=== PATIENT | female | born 1975 | race Caucasian/White ===

== ENCOUNTER 2018-07-21 17:26 | Emergency (ER) | payer OTHER ==
[2018-07-21] MEDS ORDERED: KETOROLAC TROMETHAMINE 60 MG/2 ML VIAL IM ONE (18:39)
--- NOTE | 2018-07-21 18:39 | PDOC ---
Rapid Medical Evaluation Chief Complaint: Chronic pain Time Seen by Provider: 07/21/18 18:34 Medical Evaluation: Allergies Allergy/AdvReac Type Severity Reaction Status Date / Time No Known Allergies Allergy Verified 07/21/18 18:32 07/21/18 18:34 I have performed a brief in-person evaluation of this patient. The patient presents with a chief complaint of:h/o chronic back being managed with physical therapy for 6 months now present with complains of worsening lower back radiating down right thigh with tingling sensation . Patient did not take anything for the pain. Patient report she got injured on the job doing heavy lifting 6 months ago. Pertinent physical exam findings: moderate TTP over lower lumber area. I have ordered the following: Toradol 60mg IM. x-ray of lumbosacral The patient will proceed to the ED for further evaluation. Discharge Disposition - Diagnosis Lumbago - Discharge Dispostion Condition at time of disposition: Stable - Referrals - Patient Instructions - Post Discharge Activity
[2018-07-21 18:40] VITALS: BP 148/58; PULSE 95; TEMP 98; BMI 27.4
--- NOTE | 2018-07-21 20:28 | PDOC ---
History of Present Illness - General Chief Complaint: Chronic pain Stated Complaint: ABD PAIN Time Seen by Provider: 07/21/18 18:34 - History of Present Illness Initial Comments: 07/21/18 20:28 43-year-old female presents for evaluation of lower back pain with bilateral posterior lateral leg radicular symptoms without loss of bowel bladder function saddle paresthesia or systemic symptoms. Past History - Past Medical History Allergies/Adverse Reactions: Allergies Allergy/AdvReac Type Severity Reaction Status Date / Time No Known Allergies Allergy Verified 07/21/18 18:32 Home Medications: Ambulatory Orders Cetirizine HCl [Zyrtec -] 10 mg PO DAILY 07/21/18 Cyclobenzaprine HCl [Flexeril 10 mg] 10 mg PO HS PRN #10 tablet 07/21/18 Fluoxetine HCl [Prozac -] 20 mg PO DAILY 07/21/18 Methylprednisolone [Medrol Dose Donell] 4 mg PO ASDIR #21 tablet 07/21/18 Pantoprazole Sodium [Protonix -] 40 mg PO DAILY 07/21/18 traZODone HCL [Trazodone HCl] 100 mg PO HS 07/21/18 COPD: No Other medical history: back injury ? disc - Suicide/Smoking/Psychosocial Hx Smoking History: Never smoked Review of Systems - Review of Systems : No: Incontinence Musculoskeletal: Yes: Back Pain Neurological: Yes: Weakness *Physical Exam - Vital Signs Last Vital Signs Temp Pulse Resp BP Pulse Ox 98 F 95 H 22 H 148/58 L 100 07/21/18 18:34 07/21/18 18:34 07/21/18 18:34 07/21/18 18:34 07/21/18 18:34 - Physical Exam Comments: 07/21/18 20:27 Lumbar spine skin color and temperature are normal range of motion is limited. There is no midline tenderness. Moderate right and left paralumbar musculature spasm and tenderness. 5 out of 5 strength in bilateral lower extremities without gross sensorimotor deficits. She is neurovascularly intact. Positive straight leg test bilaterally Medical Decision Making - Medical Decision Making 07/21/18 20:27 43-year-old female with lumbar radiculopathy for 1 month holding out on evaluation because of insurance issues I'll treat her in the emergency room with Toradol Medrol Dosepak at home and orthopedic spine surgery follow-up. Flexeril was also add *DC/Admit/Observation/Transfer Diagnosis at time of Disposition: Lumbago, Lumbar radiculopathy - Discharge Dispostion Disposition: HOME Condition at time of disposition: Stable Decision to Admit order: No - Prescriptions Prescriptions: Cyclobenzaprine HCl [Flexeril 10 mg] 10 mg PO HS PRN #10 tablet PRN Reason: Muscle Spasms Methylprednisolone [Medrol Dose Donell] 4 mg PO ASDIR #21 tablet - Referrals Referrals: Adrian Cobian MD [Staff Physician] - - Patient Instructions Printed Discharge Instructions: Lumbar Radiculopathy, DI for Lumbar Radiculopathy Additional Instructions: Please start the muscle relaxer this evening. One tablet before bedtime. And start the steroid pack tomorrow morning. Return to the emergency room for worsening symptoms and follow-up with orthopedic spine surgery without fail in 1 -2 days for further evaluation and treatment options. - Post Discharge Activity
[2018-07-21] MEDS ORDERED: KETOROLAC TROMETHAMINE 60 MG/2 ML VIAL ONE (20:38)
== END 2018-07-21 20:49 | disposition home or self-care (01) ==
LOC: JERFT 17:26 → JER 17:26 → JERFT 20:49
PROC: 3E0233Z Introduction of Anti-inflammatory into Muscle, Percutaneous Approach (ICD-10-PCS; principal; 2018-07-21)
DX: M54.16 Radiculopathy, lumbar region (principal)
CPT/HCPCS: 96372; 99281-25

== ENCOUNTER 2018-10-30 09:00 | Inpatient (IN) | payer OTHER ==
[2018-11-12 10:35] VITALS: BMI 27.3
[2018-11-13 06:46] LABS: EPI CELLS 4.2 /HPF (0-5/HPF); HCG,QUALITATIVE URINE Negative; HYALINE CASTS 5 /lpf (0-8); PH,URINE 6.5 (5.0-8.0); URINE APPEARANCE CLEAR; URINE BACTERIA 8.6 /hpf (NEGATIVE); URINE BILIRUBIN NEGATIVE (NEGATIVE); URINE COLOR YELLOW; URINE GLUCOSE (UA) NEGATIVE (NEGATIVE); URINE KETONE NEGATIVE (NEGATIVE); URINE LEUK ESTERASE NEGATIVE (NEGATIVE); URINE NITRITE NEGATIVE (NEGATIVE); URINE PROTEIN NEGATIVE (NEGATIVE); URINE RBC 3 /hpf (0-4); URINE UROBILINOGEN 0.2 mg/dL (0.2-1.0); URINE WBC 1 /hpf (0-5)
[2018-11-13] MEDS ORDERED: LIDOCAINE 1%-EPI 1:100,000 30 ML MDV IJ ONE (07:50)
[2018-11-13] MEDS ORDERED: VANCOMYCIN 1,000 MG VIAL (RESTRICTED TO ID ONLY) ONE ×2 (07:50→08:36)
[2018-11-13] MEDS ORDERED: GENTAMICIN SO4 80 MG/2 ML VIAL ONE (07:50)
[2018-11-13] MEDS ORDERED: PROPOFOL 20 ML ONE ×2 (08:00)
[2018-11-13] MEDS ORDERED: MIDAZOLAM HCL 2 MG/2 ML SINGLE DOSE VIAL ONE ×2 (08:00)
[2018-11-13] MEDS ORDERED: ROCURONIUM BROMIDE 50 MG/5 ML SYRINGE ONE (08:02)
[2018-11-13] MEDS ORDERED: MORPHINE 5 MG/10 ML AMP - FOR COMPOUNDING USE ONLY ONE (08:03)
[2018-11-13] MEDS ORDERED: THROMBIN (BOVINE) 5,000 UNIT VIAL TP ONE ×2 (08:04→10:00)
[2018-11-13] MEDS ORDERED: LIDOCAINE HCL/PF 2% SDV 5ML VIAL ONE (08:27)
[2018-11-13] MEDS ORDERED: ceFAZolin SODIUM 1 GM VIAL ONE ×2 (08:36→17:54)
[2018-11-13] MEDS ORDERED: SODIUM CHLORIDE 0.9% P/F 10 ML VIAL IJ ONE (08:36)
[2018-11-13] MEDS ORDERED: DEXAMETHASONE SOD PHOSPHATE 4 MG/1 ML VIAL ONE (08:39)
[2018-11-13] MEDS ORDERED: ONDANSETRON 4 MG/2 ML VIAL ONE (08:39)
[2018-11-13] MEDS ORDERED: LIDOCAINE 1%/EPI 1:100000 (20 ML MULTI DOSE VIAL) IJ ONE ×2 (09:00)
[2018-11-13] MEDS ORDERED: BUPIVACAINE HCL/PF 0.25% (2.5MG/ML) 10 ML VIAL ONE (09:32)
[2018-11-13] MEDS ORDERED: ceFAZolin SODIUM 1 GM VIAL IVPB ONE (09:37)
[2018-11-13] MEDS ORDERED: BUPIVACAINE LIPOSOME/PF (EXPAREL) 266 MG/20 ML VIAL ONE (09:40)
[2018-11-13] MEDS ORDERED: VANCOMYCIN 1,000 MG VIAL (RESTRICTED TO ID ONLY) IVPB ONE (09:40)
[2018-11-13] MEDS ORDERED: GELATIN, ABSORBABLE 12-7MM EACH SPONGE TP ONE (10:00)
[2018-11-13] MEDS ORDERED: DESFLURANE GAS 240 ML BOTTLE IH ONE (10:07)
[2018-11-13] MEDS ORDERED: BUPIVACAINE LIPOSOME/PF (EXPAREL) 266 MG/20 ML VIAL NR ONE ×2 (10:24→11:15)
[2018-11-13] MEDS ORDERED: BUPIVACAINE HCL/PF 0.25% (2.5MG/ML) 10 ML VIAL IJ ONE ×2 (10:24→11:15)
[2018-11-13] MEDS ORDERED: GLYCOPYRROLATE 0.2 MG/1 ML VIAL ONE (11:13)
[2018-11-13] MEDS ORDERED: NEOSTIGMINE METHYLSULFATE 0.5 MG/1 ML - 10 ML MDV ONE (11:13)
[2018-11-13] MEDS ORDERED: DEXAMETHASONE SOD PHOSPHATE 4 MG/1 ML VIAL IVPUSH PRN (12:01)
[2018-11-13] MEDS ORDERED: PROMETHAZINE HCL 25 MG/1 ML VIAL IVPUSH PRN (12:01)
[2018-11-13] MEDS ORDERED: ONDANSETRON 4 MG/2 ML VIAL IVPUSH PRN ×3 (12:01→12:21)
[2018-11-13] MEDS ORDERED: PROMETHAZINE HCL 25 MG/1 ML VIAL IVPB PRN (12:01)
[2018-11-13] MEDS ORDERED: HYDROmorphone *PCA* 10MG/50ML DISP.SYRIN PCA SCH (12:15)
[2018-11-13] MEDS ORDERED: diphenhydrAMINE HCL 25 MG CAPSULE (FP) PO PRN (12:21)
[2018-11-13] MEDS ORDERED: LACTATED RINGERS SOLUTION 1,000 ML/1,000 ML INFUS.BAG IV SCH (12:30)
[2018-11-13] MEDS ORDERED: HYDROmorphone *PCA* 10MG/50ML DISP.SYRIN ONE (12:36)
--- NOTE | 2018-11-13 12:38 | CON.GU ---
Consult - History of Present Illness History of Present Illness: 43 yo female admitted for laminectomy. Nixon catheter inserted in OR with clear urine. Then developed pink urine when she was positioned. No prior history aside from uti in the past - Past Medical History ...LMP: 10/24/18 - Alcohol/Substance Use Hx Alcohol Use: No - Smoking History Smoking history: Never smoked Have you smoked in the past 12 months: No Home Medications - Allergies Allergies/Adverse Reactions: Allergies Allergy/AdvReac Type Severity Reaction Status Date / Time No Known Allergies Allergy Verified 11/13/18 07:01 - Home Medications Home Medications: Ambulatory Orders traZODone HCL [Trazodone HCl] 100 mg PO PRN PRN 07/21/18 Gabapentin [Neurontin] 300 mg PO BID 11/04/18 Oxycodone HCl/Acetaminophen [Oxycodone-Acetaminophen 5-325] 1 each PO PRN PRN Physical Exam- Vital Signs: Vital Signs Temperature 98.6 F 11/13/18 07:02 Pulse Rate 86 11/13/18 07:02 Respiratory Rate 16 11/13/18 07:02 Blood Pressure 113/70 11/13/18 07:02 O2 Sat by Pulse Oximetry (%) 100 11/13/18 07:02 Problem List - Problems (1) Gross hematuria Assessment/Plan: may remove nixon when urine clear outpt followup for cystoscopy renal sonogram tomorrow Code(s): R31.0 - GROSS HEMATURIA
[2018-11-13] MEDS ORDERED: traZODone HCL 100 MG TABLET (FP) PO PRN (12:46)
[2018-11-13 13:05] LABS: EPI CELLS 0.7 /HPF (0-5/HPF); HYALINE CASTS 0 /lpf (0-8); PH,URINE 7.5 (5.0-8.0); URINE APPEARANCE CLEAR; URINE BACTERIA 0.2 /hpf (NEGATIVE); URINE BILIRUBIN NEGATIVE (NEGATIVE); URINE COLOR ORANGE; URINE GLUCOSE (UA) NEGATIVE (NEGATIVE); URINE KETONE NEGATIVE (NEGATIVE); URINE LEUK ESTERASE NEGATIVE (NEGATIVE); URINE NITRITE NEGATIVE (NEGATIVE); URINE PROTEIN 1+ (NEGATIVE); URINE RBC 4 /hpf (0-4); URINE UROBILINOGEN 0.2 mg/dL (0.2-1.0); URINE WBC 0 /hpf (0-5)
[2018-11-13] MEDS ORDERED: morphine SULFATE/PF 0.5 MG/ML (2cc Syringe - QUVA) EP ONE (13:15)
--- NOTE | 2018-11-13 13:15 | OP ---
Operative Note - Note: Operative Date: 11/13/18 Pre-Operative Diagnosis: Lumbar instability and Left L34 foraminal disc herniation Operation: L3-4 laminectomies with left rranspedicular approach for interbody cage and arthrodesis with L34 posterior fusion Post-Operative Diagnosis: Same as Pre-op Surgeon: Pawel Sterling Head Irrigator: Muriel Joshi Anesthesiologist/BI CONSULTANT: Justin Boateng Anesthesia: General, Spinal, Local Estimated Blood Loss (mls): 100 Drains & Tubes with Location: j/p right paravetebral lumbar spine Drains, Volume Out (mls): 600 (nixon) Fluid Volume Replaced (mls): 1,300 Operative Report Dictated: Yes
--- NOTE | 2018-11-13 14:46 | CONSULT ---
Consult Consult Specialty:: medicine - History of Present Illness Chief Complaint: post op laminectomy History of Present Illness: 43 yr old female came in for laminectomy seen in pacu has nixon cath inserted- hematuria seen by urology L3-4 laminectomies with left transpedicular approach for interbody cage and arthrodesis with L34 posterior fusion - Past Medical History ...LMP: 10/24/18 - Alcohol/Substance Use Hx Alcohol Use: No - Smoking History Smoking history: Never smoked Have you smoked in the past 12 months: No Home Medications - Allergies Allergies/Adverse Reactions: Allergies Allergy/AdvReac Type Severity Reaction Status Date / Time No Known Allergies Allergy Verified 11/13/18 07:01 - Home Medications Home Medications: Ambulatory Orders traZODone HCL [Trazodone HCl] 100 mg PO PRN PRN 07/21/18 Gabapentin [Neurontin] 300 mg PO BID 11/04/18 Oxycodone HCl/Acetaminophen [Oxycodone-Acetaminophen 5-325] 1 each PO PRN PRN Review of Systems - Review of Systems Musculoskeletal: reports: Back Pain Physical Exam Vital Signs: Vital Signs Temperature 98.6 F 11/13/18 07:02 Pulse Rate 86 11/13/18 07:02 Respiratory Rate 16 11/13/18 07:02 Blood Pressure 113/70 11/13/18 07:02 O2 Sat by Pulse Oximetry (%) 100 11/13/18 07:02 Constitutional: Yes: Calm Cardiovascular: Yes: Regular Rate and Rhythm, S1, S2 Respiratory: Yes: CTA Bilaterally Gastrointestinal: Yes: Normal Bowel Sounds, Soft Renal/: Yes: Nixon Present (no yellow urine in nixon cath tubing), Hematuria Musculoskeletal: Yes: Other (drain dark red drainage) Problem List - Problems (1) Gross hematuria Assessment/Plan: maintain nixon cath till urine is yellow Follow up [facility] Code(s): R31.0 - GROSS HEMATURIA (2) Back pain Assessment/Plan: s/p laminectomy pain control dilaudid technical aid neurontin morphine dvt ppx bowel regimen Code(s): M54.9 - DORSALGIA, UNSPECIFIED Qualifiers: Back pain location: low back pain Chronicity: chronic Back pain laterality: midline Sciatica presence: with sciatica Sciatica laterality: bilateral sciatica Qualified Code(s): M54.41 - Lumbago with sciatica, right side; M54.42 - Lumbago with sciatica, left side; G89.29 - Other chronic pain
[2018-11-13 15:17] LABS: YEAST NONE SEEN (NEGATIVE)
[2018-11-13] MEDS: LACTATED RINGERS SOLUTION 1,000 ML IV SCH (15:41)
[2018-11-13] MEDS: DOCUSATE SODIUM 100 MG CAPSULE (FP) PO SCH ×2 (15:42→21:55)
[2018-11-13] MEDS ORDERED: DEXTROSE 5%-WATER - 50 ML IVPB ONE (17:54)
[2018-11-13] MEDS: HEPARIN NA (PORCINE) 5,000 UNITS/ML 1ML VIAL SQ SCH (17:55)
[2018-11-13] MEDS: CEFAZOLIN 1 GM in DEXTROSE 5%-WATER - 50 ML IVPB SCH (17:55)
[2018-11-14] MEDS ORDERED: DEXTROSE 5%-WATER - 50 ML IVPB ONE ×3 (00:27→19:01)
[2018-11-14] MEDS ORDERED: ceFAZolin SODIUM 1 GM VIAL ONE ×3 (00:27→19:01)
[2018-11-14] MEDS: CEFAZOLIN 1 GM in DEXTROSE 5%-WATER - 50 ML IVPB SCH ×3 (00:57→19:04)
[2018-11-14] MEDS: HEPARIN NA (PORCINE) 5,000 UNITS/ML 1ML VIAL SQ SCH ×3 (01:30→17:43)
[2018-11-14] MEDS: DOCUSATE SODIUM 100 MG CAPSULE (FP) PO SCH ×3 (05:31→22:01)
[2018-11-14 08:06] LABS: BLOOD UREA NITROGEN 9.4 mg/dL (7-18); CALCIUM 8.5 mg/dL (8.5-10.1); CREATININE 0.8 mg/dL (0.55-1.3); POTASSIUM 3.7 mmol/L (3.5-5.1)
[2018-11-14 08:09] LABS: HEMATOCRIT 31.6 % (32.4-45.2); HEMOGLOBIN 10.6 GM/dL (10.7-15.3); MCH 31.8 pg (25.7-33.7); MCHC 33.5 g/dl (32.0-36.0); MEAN CELL VOLUME 94.8 fl (80-96); MEAN PLT VOLUME 9.6 fl (7.5-11.1); PLATELET COUNT 228 K/MM3 (134-434); RBC 3.34 M/mm3 (3.60-5.2); RDW 13.1 % (11.6-15.6)
--- NOTE | 2018-11-14 08:49 | PN ---
Progress Note (short form) - Note Progress Note: 43yo F s/p L3-4 PLIF POD 1, pt seen and examined at bedside. Pt states that her pain is well controlled, but is scared to get out of bed. Pt denies fever, chills, n/v. No weakness or numbness in LE. Last Vital Signs Temp Pulse Resp BP Pulse Ox 98.8 F 91 H 20 116/58 L 99 11/13/18 20:00 11/13/18 20:00 11/13/18 20:00 11/13/18 20:00 11/13/18 16:40 CBC, BMP 11/14/18 05:30 PE: Gen; A&O x 3 Resp: breathing comfortably Back: incision is clean with no erythema or discharge. Drain serosanguinous drainage Output: 40ml Ext: no weakness or numbness. Problem List - Problems (1) Lumbar radiculopathy Assessment/Plan: Plan -will DC nixon as urine is now clear. -emphasize OOB/ambulate with PT -pain control -dvt ppx Case discussed with Dr. Sterling, who agrees with plan Code(s): M54.16 - RADICULOPATHY, LUMBAR REGION
[2018-11-14] MEDS ORDERED: traZODone HCL 50 MG TABLET (FP) ONE ×2 (10:03→21:02)
[2018-11-14] MEDS: FOLIC ACID 1 MG TABLET (FP) PO SCH (10:05)
[2018-11-14] MEDS: FERROUS SO4 325 MG TABLET (FP) PO SCH (10:05)
[2018-11-14] MEDS: traZODone HCL 100 MG TABLET (FP) PO SCH ×2 (10:05→22:01)
[2018-11-14] MEDS: GABAPENTIN 300 MG CAPSULE (FP) PO SCH ×2 (10:05→22:00)
[2018-11-14] MEDS ORDERED: oxyCODONE HCL 5 MG TABLET PO PRN (10:48)
--- NOTE | 2018-11-14 10:50 | PN ---
Progress Note, Physician Chief Complaint: awake alert denies chest pain or sob hussain horan - Current Medication List Current Medications: Active Medications Dexamethasone Sodium Phosphate (Decadron Injection -) 4 mg IVPUSH ONCE PRN PRN Reason: NAUSEA AND/OR VOMITING Diphenhydramine HCl (Benadryl Injection -) 12.5 mg IVPUSH ONCE PRN PRN Reason: FOR ITCHING Diphenhydramine HCl (Benadryl -) 25 mg PO Q6H PRN PRN Reason: FOR ITCHING Docusate Sodium (Colace -) 100 mg PO TID [facility] Last Admin: 11/14/18 05:31 Dose: 100 mg Fentanyl (Sublimaze Injection -) 50 mcg IVPUSH [id number] PRN PRN Reason: PAIN-PACU ORDER X 4 DOSES ONLY Ferrous Sulfate (Feosol -) 325 mg PO DAILY [facility] Last Admin: 11/14/18 10:05 Dose: 325 mg Folic Acid (Folic Acid -) 1 mg PO DAILY [facility] Last Admin: 11/14/18 10:05 Dose: 1 mg Gabapentin (Neurontin -) 300 mg PO BID [facility] Last Admin: 11/14/18 10:05 Dose: 300 mg Heparin Sodium (Porcine) (Heparin -) 5,000 unit SQ Q8H-IV [facility] Last Admin: 11/14/18 10:04 Dose: 5,000 unit Lactated Ringer's (Lactated Ringers Solution) 1,000 mls @ 125 mls/hr IV ASDIR [facility] Last Admin: 11/13/18 15:41 Dose: Not Given Cefazolin Sodium (Ancef 1 Gm Premixed Ivpb -) 1 gm in 50 mls @ 100 mls/hr IVPB Q8H-IV [facility] Cefazolin Sodium 1 gm/ (Dextrose) 50 mls @ 100 mls/hr IVPB Q8H [facility] Stop: 11/14/18 16:59 Last Admin: 11/14/18 08:23 Dose: 100 mls/hr Ondansetron HCl (Zofran Injection) 4 mg IVPUSH Q4H PRN PRN Reason: NAUSEA AND/OR VOMITING Oxycodone HCl (Roxicodone -) 5 mg PO Q6H PRN PRN Reason: PAIN LEVEL 1-5 Stop: 11/15/18 10:47 Promethazine HCl (Phenergan Injection -) 12.5 mg IVPB Q6H PRN PRN Reason: NAUSEA AND/OR VOMITING Trazodone HCl (Desyrel -) 100 mg PO BID [facility] Last Admin: 11/14/18 10:05 Dose: 100 mg - Objective Vital Signs: Vital Signs Temperature 98.6 F 11/14/18 08:00 Pulse Rate 68 11/14/18 08:40 Respiratory Rate 18 11/14/18 08:40 Blood Pressure 100/47 L 11/14/18 08:40 O2 Sat by Pulse Oximetry (%) 96 11/14/18 08:40 Constitutional: Yes: Mild Distress Cardiovascular: Yes: WNL Respiratory: Yes: WNL Gastrointestinal: Yes: WNL Genitourinary: Yes: Other ...Motor Strength: LLE, RLE Labs: CBC, BMP 11/14/18 05:30 11/14/18 05:30 Problem List - Problems (1) Back pain Code(s): M54.9 - DORSALGIA, UNSPECIFIED Qualifiers: Back pain location: low back pain Chronicity: chronic Back pain laterality: midline Sciatica presence: with sciatica Sciatica laterality: bilateral sciatica Qualified Code(s): M54.41 - Lumbago with sciatica, right side; M54.42 - Lumbago with sciatica, left side; G89.29 - Other chronic pain (2) Lumbar radiculopathy Code(s): M54.16 - RADICULOPATHY, LUMBAR REGION Assessment/Plan pod#1 lumbar resection/discectomy hussain dc'd, monitor voiding dvt prophylaxis oob to chair per neurosurgery pain control PT eval
--- NOTE | 2018-11-14 10:57 | PN ---
Progress Note (short form) - Note Progress Note: Anesthesia POD#1 S/P L3-L4 decompression with discectomy and fusion and cage under GA,spinal with Duramorph,BAND MACHINE OPERATOR VSS,no N/V,pain is under control,using BAND MACHINE OPERATOR occasionally. Food is advanced,tolerating well. A/P BAND MACHINE OPERATOR is discontinued,oral pain medications are written. Rest of the care is as per Surgeon. Gwendolyn Mcclain MD.
[2018-11-14] MEDS: ACETAMINOPHEN 325 MG TABLET (FP) PO PRN (16:38)
[2018-11-14] MEDS: LACTATED RINGERS SOLUTION 1,000 ML IV SCH (17:42)
[2018-11-14] MEDS ORDERED: SENNOSIDES 8.6MG TABLET (FP) PO ONE (22:49)
[2018-11-15] MEDS ORDERED: ceFAZolin SODIUM 1 GM VIAL ONE ×3 (01:58→16:59)
[2018-11-15] MEDS ORDERED: DEXTROSE 5%-WATER - 50 ML IVPB ONE ×3 (01:59→16:59)
[2018-11-15] MEDS: CEFAZOLIN 1 GM in DEXTROSE 5%-WATER - 50 ML IVPB SCH ×2 (02:04→11:55)
[2018-11-15] MEDS: HEPARIN NA (PORCINE) 5,000 UNITS/ML 1ML VIAL SQ SCH ×3 (02:04→17:09)
[2018-11-15] MEDS: DOCUSATE SODIUM 100 MG CAPSULE (FP) PO SCH ×3 (06:09→23:05)
[2018-11-15] MEDS: ACETAMINOPHEN 325 MG TABLET (FP) PO PRN ×2 (06:11→20:48)
[2018-11-15 08:19] LABS: HEMOGLOBIN 10.9 GM/dL (10.7-15.3); MCH 32.1 pg (25.7-33.7); MCHC 34.2 g/dl (32.0-36.0); MEAN CELL VOLUME 93.8 fl (80-96); MEAN PLT VOLUME 9.1 fl (7.5-11.1); PLATELET COUNT 225 K/MM3 (134-434); RBC 3.41 M/mm3 (3.60-5.2); WHITE BLOOD COUNT 8.9 K/mm3 (4.0-10.0)
[2018-11-15 09:17] LABS: BILIRUBIN,TOTAL 0.4 mg/dL (0.2-1); BLOOD UREA NITROGEN 7.3 mg/dL (7-18); CALCIUM 8.9 mg/dL (8.5-10.1); CREATININE 0.8 mg/dL (0.55-1.3); MAGNESIUM 2.1 mg/dL (1.8-2.4); POTASSIUM 3.6 mmol/L (3.5-5.1); TOT PROT 6.2 g/dl (6.4-8.2)
--- NOTE | 2018-11-15 09:23 | PN ---
Progress Note, Physician Chief Complaint: Lumbar laminectomy POD2 History of Present Illness: Rapid response called in at 0912, pt had presyncopal episode while urinating in the bathroom on toilet bowl. Pt was awake but disoriented first. Pt was moved to the bed, place in trendelenberg. Vital originally normal, but then SBP dropped to 69 mm Hg. NS 500 ml bolus given with good response. Would continue LR at 125 cc/hr for now. Place nixon to monitor output - Current Medication List Current Medications: Active Medications Acetaminophen (Tylenol -) 650 mg PO Q6H PRN PRN Reason: MILD PAIN Last Admin: 11/15/18 06:11 Dose: 650 mg Dexamethasone Sodium Phosphate (Decadron Injection -) 4 mg IVPUSH ONCE PRN PRN Reason: NAUSEA AND/OR VOMITING Diphenhydramine HCl (Benadryl Injection -) 12.5 mg IVPUSH ONCE PRN PRN Reason: FOR ITCHING Diphenhydramine HCl (Benadryl -) 25 mg PO Q6H PRN PRN Reason: FOR ITCHING Docusate Sodium (Colace -) 100 mg PO TID [facility] Last Admin: 11/15/18 06:09 Dose: 100 mg Fentanyl (Sublimaze Injection -) 50 mcg IVPUSH [id number] PRN PRN Reason: PAIN-PACU ORDER X 4 DOSES ONLY Ferrous Sulfate (Feosol -) 325 mg PO DAILY [facility] Last Admin: 11/14/18 10:05 Dose: 325 mg Folic Acid (Folic Acid -) 1 mg PO DAILY [facility] Last Admin: 11/14/18 10:05 Dose: 1 mg Gabapentin (Neurontin -) 300 mg PO BID [facility] Last Admin: 11/14/18 22:00 Dose: 300 mg Heparin Sodium (Porcine) (Heparin -) 5,000 unit SQ Q8H-IV [facility] Last Admin: 11/15/18 02:04 Dose: 5,000 unit Lactated Ringer's (Lactated Ringers Solution) 1,000 mls @ 125 mls/hr IV ASDIR [facility] Last Admin: 11/14/18 17:42 Dose: Not Given Cefazolin Sodium 1 gm/ (Dextrose) 50 mls @ 100 mls/hr IVPB Q8H-IV [facility] Stop: 11/15/18 17:59 Last Admin: 11/15/18 02:04 Dose: 100 mls/hr Ondansetron HCl (Zofran Injection) 4 mg IVPUSH Q4H PRN PRN Reason: NAUSEA AND/OR VOMITING Oxycodone HCl (Roxicodone -) 5 mg PO Q6H PRN PRN Reason: PAIN LEVEL 1-5 Stop: 11/15/18 10:47 Last Admin: 11/14/18 14:08 Dose: 5 mg Promethazine HCl (Phenergan Injection -) 12.5 mg IVPB Q6H PRN PRN Reason: NAUSEA AND/OR VOMITING Trazodone HCl (Desyrel -) 100 mg PO BID [facility] Last Admin: 11/14/18 22:01 Dose: 100 mg - Objective Vital Signs: Vital Signs Temperature 100.6 F H 11/15/18 07:36 Pulse Rate 90 11/15/18 07:36 Respiratory Rate 22 H 11/15/18 07:36 Blood Pressure 103/57 L 11/15/18 07:36 O2 Sat by Pulse Oximetry (%) 96 11/14/18 09:00 Constitutional: Yes: Well Nourished, No Distress, Calm Cardiovascular: Yes: Regular Rate and Rhythm Respiratory: Yes: Regular Gastrointestinal: Yes: Normal Bowel Sounds, Soft Genitourinary: Yes: WNL Musculoskeletal: Yes: Back Pain Extremities: Yes: WNL Edema: No Peripheral Pulses WNL: Yes Neurological: Yes: Alert, Oriented Psychiatric: Yes: Alert, Oriented Labs: CBC, BMP 11/15/18 07:15 Problem List - Problems (1) Gross hematuria Assessment/Plan: -Seen by urology -Adrian ruggiero'jordan -Urine clear -F/U o/p for cystoscopy Code(s): R31.0 - GROSS HEMATURIA (2) Lumbago Assessment/Plan: -Seen by Surgery -Pain management -PT as per surgery Code(s): M54.5 - LOW BACK PAIN (3) Pre-syncope Assessment/Plan: -likely 2/2 anesthesia and spinal block -NS 500 ml bolus -Continue LR at 125 cc/hr -Monitor BP -Continue bed rest and IVF for another 24-48 hours -NS aware -CT head+ MRI cervical spine negative Code(s): R55 - SYNCOPE AND COLLAPSE Assessment/Plan see problem list DVT prophylaxis PT as per surgery
[2018-11-15] MEDS ORDERED: SODIUM CHLORIDE 500 ML IV STA (09:25)
[2018-11-15] MEDS: traMADol HCL 50 MG TABLET PO PRN (10:06)
[2018-11-15] MEDS: GABAPENTIN 300 MG CAPSULE (FP) PO SCH ×2 (10:07→23:05)
[2018-11-15] MEDS ORDERED: traZODone HCL 50 MG TABLET (FP) ONE ×2 (11:52→23:00)
[2018-11-15] MEDS: FERROUS SO4 325 MG TABLET (FP) PO SCH (11:55)
[2018-11-15] MEDS: traZODone HCL 100 MG TABLET (FP) PO SCH ×2 (11:55→23:05)
[2018-11-15] MEDS: FOLIC ACID 1 MG TABLET (FP) PO SCH (11:55)
[2018-11-15] MEDS: LACTATED RINGERS SOLUTION 1,000 ML IV SCH ×2 (11:55→20:48)
[2018-11-16] MEDS: HEPARIN NA (PORCINE) 5,000 UNITS/ML 1ML VIAL SQ SCH ×3 (03:11→17:13)
[2018-11-16] MEDS: LACTATED RINGERS SOLUTION 1,000 ML IV SCH ×3 (04:43→21:15)
[2018-11-16] MEDS: ACETAMINOPHEN 325 MG TABLET (FP) PO PRN (04:47)
[2018-11-16] MEDS: DOCUSATE SODIUM 100 MG CAPSULE (FP) PO SCH ×3 (06:26→21:07)
--- NOTE | 2018-11-16 08:35 | PN ---
Progress Note, Physician Chief Complaint: Lumbar laminectomy POD2 History of Present Illness: NAD Doing much better Denies N/V, feels a bit stronger today Nixon draining clear urine Appetite improved BP still low normal, would continue fluids - Current Medication List Current Medications: Active Medications Acetaminophen (Tylenol -) 650 mg PO Q4H PRN PRN Reason: PAIN 1-3 Last Admin: 11/16/18 04:47 Dose: 650 mg Dexamethasone Sodium Phosphate (Decadron Injection -) 4 mg IVPUSH ONCE PRN PRN Reason: NAUSEA AND/OR VOMITING Diphenhydramine HCl (Benadryl Injection -) 12.5 mg IVPUSH ONCE PRN PRN Reason: FOR ITCHING Diphenhydramine HCl (Benadryl -) 25 mg PO Q6H PRN PRN Reason: FOR ITCHING Docusate Sodium (Colace -) 100 mg PO TID [facility] Last Admin: 11/16/18 06:26 Dose: 100 mg Fentanyl (Sublimaze Injection -) 50 mcg IVPUSH [id number] PRN PRN Reason: PAIN-PACU ORDER X 4 DOSES ONLY Ferrous Sulfate (Feosol -) 325 mg PO DAILY [facility] Last Admin: 11/15/18 11:55 Dose: 325 mg Folic Acid (Folic Acid -) 1 mg PO DAILY [facility] Last Admin: 11/15/18 11:55 Dose: 1 mg Gabapentin (Neurontin -) 300 mg PO BID [facility] Last Admin: 11/15/18 23:05 Dose: 300 mg Heparin Sodium (Porcine) (Heparin -) 5,000 unit SQ Q8H-IV [facility] Last Admin: 11/16/18 03:11 Dose: 5,000 unit Lactated Ringer's (Lactated Ringers Solution) 1,000 mls @ 125 mls/hr IV ASDIR [facility] Last Admin: 11/16/18 04:43 Dose: 125 mls/hr Ondansetron HCl (Zofran Injection) 4 mg IVPUSH Q4H PRN PRN Reason: NAUSEA AND/OR VOMITING Promethazine HCl (Phenergan Injection -) 12.5 mg IVPB Q6H PRN PRN Reason: NAUSEA AND/OR VOMITING Tramadol HCl (Ultram -) 50 mg PO Q8H PRN PRN Reason: PAIN LEVEL 4 - 6 Last Admin: 11/15/18 10:06 Dose: 50 mg Trazodone HCl (Desyrel -) 100 mg PO BID [facility] Last Admin: 11/15/18 23:05 Dose: 100 mg - Objective Vital Signs: Vital Signs Temperature 98.8 F 11/16/18 06:00 Pulse Rate 66 11/16/18 06:00 Respiratory Rate 20 11/16/18 06:00 Blood Pressure 90/49 L 11/16/18 06:00 O2 Sat by Pulse Oximetry (%) 100 11/15/18 21:00 Constitutional: Yes: Well Nourished, No Distress, Calm Cardiovascular: Yes: Regular Rate and Rhythm Respiratory: Yes: Regular Gastrointestinal: Yes: Normal Bowel Sounds, Soft Genitourinary: Yes: WNL Musculoskeletal: Yes: Back Pain Edema: No Peripheral Pulses WNL: Yes Wound/Incision: Yes: Dressing Dry and Intact (with NICOLE drain) Neurological: Yes: Alert, Oriented Psychiatric: Yes: Alert, Oriented Labs: CBC, BMP 11/15/18 07:15 11/15/18 07:15 Problem List - Problems (1) Gross hematuria Assessment/Plan: -resolved -Seen by urology -Continue nixon until tomorrow, Voiding trial in AM -Urine clear -F/U o/p for cystoscopy Code(s): R31.0 - GROSS HEMATURIA (2) Lumbago Assessment/Plan: -Seen by Surgery -Pain management -PT as per surgery Code(s): M54.5 - LOW BACK PAIN Assessment/Plan see problem list DVT prophylaxis PT as per surgery
[2018-11-16] MEDS ORDERED: traZODone HCL 50 MG TABLET (FP) ONE ×2 (09:34→21:06)
[2018-11-16] MEDS: traZODone HCL 100 MG TABLET (FP) PO SCH ×2 (10:16→21:07)
[2018-11-16] MEDS: GABAPENTIN 300 MG CAPSULE (FP) PO SCH ×2 (10:17→21:07)
[2018-11-16] MEDS: FERROUS SO4 325 MG TABLET (FP) PO SCH (10:17)
[2018-11-16] MEDS: FOLIC ACID 1 MG TABLET (FP) PO SCH (10:17)
[2018-11-16] MEDS: traMADol HCL 50 MG TABLET PO PRN (17:26)
[2018-11-17] MEDS: HEPARIN NA (PORCINE) 5,000 UNITS/ML 1ML VIAL SQ SCH ×2 (01:30→09:48)
[2018-11-17] MEDS: traMADol HCL 50 MG TABLET PO PRN (02:25)
[2018-11-17] MEDS: DOCUSATE SODIUM 100 MG CAPSULE (FP) PO SCH ×2 (06:53→13:07)
[2018-11-17 07:51] LABS: BASO % 0.3 % (0-2.0); HEMATOCRIT 30.7 % (32.4-45.2); HEMOGLOBIN 10.5 GM/dL (10.7-15.3); LYMPH % 24.8 % (8-40); MCH 32.2 pg (25.7-33.7); MCHC 34.3 g/dl (32.0-36.0); MEAN CELL VOLUME 93.8 fl (80-96); NEUT % 66.9 % (42.8-82.8); PLATELET COUNT 223 K/MM3 (134-434); RBC 3.27 M/mm3 (3.60-5.2); RDW 12.8 % (11.6-15.6); WHITE BLOOD COUNT 7.2 K/mm3 (4.0-10.0)
--- NOTE | 2018-11-17 08:07 | PN ---
Progress Note (short form) - Note Progress Note: Surgery POD# 4 : L3-4 laminectomies with left rranspedicular approach for interbody cage and arthrodesis with L34 posterior fusion patient seen and examined at bedside with no complaints. Patient experienced a presyncopal episode while urinating in the bathroom on toilet bowl 11/15. Pt was awake but disoriented. Pt was moved to the bed, place in trendelenberg. SBP dropped to 69 mm Hg. NS 500 ml bolus given with good response. Nixon catheter was placed and urine output was closely monitored. As of this morning, her nixon catheter has been removed and she has been voiding with no issues or concern for retention. She voided this morning on rounds and put out 700cc of clear urine with no evidence of hematuria. She has been OOB ambulating, tolerating her diet and denies any CP, SOB, N/V fever or chills. Vital Signs Temp 98 F 11/17/ 06:31 Pulse 76 11/17/18 06:31 Resp 16 11/17/18 06:31 BP 100/57 L 11/17/18 06:31 Pulse Ox 100 11/16/18 21:00 Intake & Output 11/16/11/16/11/17/18 11:59 23:59 11:59 Intake Total 1500 2400 875 Output Total 2490 2950 810 Balance -990 -550 65 Intake: IV 1500 1500 875 Lactated Ringers Solution 1500 1500 875 1,000 ml @ 125 mls/hr IV ASDIR [facility] Rx#: [id number] Oral 900 Output: Drainage 40 50 10 Right Back 40 50 10 Urine 2450 2900 800 Nixon 2500 Void 2450 400 800 Other: Voiding Method Indwelling Catheter Bedpan # Unmeasured Voids Nixon 4 Void 2 1 Bowel Movement No No # Bowel Movements 1 CBC, BMP 11/17/18 06:38 PE: A&Ox3, NAD Unlabored resp on RA Incision, c/d/i with surrounding tissue intact and no evidence of tracking erythema or d/c, Drain removed with tip fully intact, drain site clean and dry with no d/c/ B/L LE compatments soft, supple and non-tender with +pulses, NVID. Problem List - Problems (1) Lumbar radiculopathy Assessment/Plan: POD #4 with one isolated incident of per-syncopy which appears to be vaso- vagal in nature. Head CT negative, currently stable. -Continue DVT prophylaxis -OOB with TLSO and PT as tolerated -Monitor I&O -D/c planning for home Code(s): M54.16 - RADICULOPATHY, LUMBAR REGION
[2018-11-17 08:16] LABS: ALBUMIN 2.7 g/dl (3.4-5.0); BILIRUBIN,TOTAL 0.7 mg/dL (0.2-1); CALCIUM 9.2 mg/dL (8.5-10.1); CREATININE 0.7 mg/dL (0.55-1.3); POTASSIUM 3.8 mmol/L (3.5-5.1); TOT PROT 5.8 g/dl (6.4-8.2)
[2018-11-17] MEDS ORDERED: traZODone HCL 50 MG TABLET (FP) ONE (09:45)
[2018-11-17] MEDS: FERROUS SO4 325 MG TABLET (FP) PO SCH (09:47)
[2018-11-17] MEDS: FOLIC ACID 1 MG TABLET (FP) PO SCH (09:47)
[2018-11-17] MEDS: traZODone HCL 100 MG TABLET (FP) PO SCH (09:47)
[2018-11-17] MEDS: GABAPENTIN 300 MG CAPSULE (FP) PO SCH (09:47)
--- NOTE | 2018-11-17 11:17 | DS ---
Physical Examination Vital Signs: Vital Signs Temperature 97.8 F 11/17/18 10:00 Pulse Rate 75 11/17/18 10:00 Respiratory Rate 20 11/17/18 10:00 Blood Pressure 92/50 L 11/17/18 10:00 O2 Sat by Pulse Oximetry (%) 100 11/16/18 21:00 Constitutional: Yes: No Distress, Calm Eyes: Yes: Conjunctiva Clear HENT: Yes: Atraumatic Cardiovascular: Yes: Regular Rate and Rhythm Respiratory: Yes: Regular, CTA Bilaterally Gastrointestinal: Yes: Normal Bowel Sounds, Soft Musculoskeletal: Yes: Muscle Weakness Extremities: Yes: WNL Edema: No Neurological: Yes: Alert, Oriented Psychiatric: Yes: Alert, Oriented Labs: CBC, BMP 11/17/18 06:38 11/17/18 06:38 Discharge Summary Reason For Visit: LUMB INSTABILITY & LEFT 3-4 FORAMINAL DISC HERNIAT Current Active Problems Gross hematuria (Acute) Pre-syncope (Acute) Procedures: Principal: Lumbar Laminectomy Hospital Course: Patient is a 43 y/o female s/p Lumbar Laminectomy L3-L4. After surgery patient with hematuria and FC placed. Hematuria resolved and FC removed without issue. Patient had presyncopal episode with hypotension. Received IVF and BP improved and has been stable since. Patient would benefit from Home Care services including 3 RN visits a week with 6 PT visits over 2 weeks and [employer] for 20hrs a week. Condition: Stable - Instructions Diet, Activity, Other Instructions: Post Operative Instructions Physical Activity Resume your normal everyday activity as tolerated. No heavy lifting or exercise until seen by your surgeon. You may walk unlimited amounts and climb stairs. You may resume driving the car when you feel safe and comfortable behind the wheel and you are no longer wearing your brace. Do not operate a vehicle while taking narcotic medication. Brace If you had back surgery, wear TLSO Brace whenever out of bed. May remove to sleep and shower. Wound Care Keep your incision clean, dry and covered at all times. Apply an occlusive dressing (Saran wrap or Tegaderm) when showering to avoid getting your incision wet. Do not submerge incision or apply ointments or creams. The obdulio will be removed in the office in 10-14 days post-op. Diet There are no dietary restrictions. Eat healthy, high-fiber foods. Drink 6-8 glasses of liquid each day. This will assist in keeping your bowels regular. Pain Management You may take Tylenol or acetaminophen. Any pain prescription medication ordered should be taken as prescribed for moderate to severe pain. Avoid any ibuprofen (Motrin, Advil, Aleve, Toradol, etc) for 3 months unless otherwise discussed with your surgeon. Call Dr Solomon for any of the following: Severe pain not relieved by medication Fever of 101 or higher Excessive bleeding or drainage on dressing Inability to urinate Any chest pain or shortness of breath, seek Emergency Care. Call the office to confirm a post-operative appointment for 2-3 weeks post-op Pawel Sterling MD [facility] [place] [address] Follow up with PMD 1 week after discharge follow up with Neurosurgery Dr Sterling continue with medication as prescribed return to ER if develop severe pain, respiratory distress, chest pain Referrals: Pawel Sterling MD, FAANS [Staff Physician] - Disposition: VNS/HOME HEALTH CARE - Home Medications Comprehensive Discharge Medication List: Ambulatory Orders traZODone HCL [Trazodone HCl] 100 mg PO PRN PRN 07/21/18 Gabapentin [Neurontin] 300 mg PO BID 11/04/18 Oxycodone HCl/Acetaminophen [Oxycodone-Acetaminophen 5-325] 1 each PO PRN PRN Docusate Sodium [Colace -] 100 mg PO TID #90 capsule 11/17/18 Ferrous Sulfate [Feosol] 325 mg PO DAILY #30 ud 11/17/18 Folic Acid - 1 mg PO DAILY #30 tablet 11/17/18 traMADol HCL [Ultram -] 50 mg PO Q8H PRN #15 tablet MDD 4 11/17/18
[2018-11-17] MEDS ORDERED: PT OWN MED DRAWER 7, Y5N ONE (11:59)
[2018-11-17] MEDS: LACTATED RINGERS SOLUTION 1,000 ML IV SCH (13:06)
[2018-11-17 15:48] VITALS: BP 88/50; PULSE 86; TEMP 97.6
== END 2018-11-17 18:22 | disposition home health service (06) | DRG 304 ==
LOC: JSAMEDAYSX 11-13 06:12 → J8W 11-13 15:37
PROVIDERS: ADMIT Neurological Surgery; ATTEND Family Medicine
PROC: 0SG0071 Fusion of Lumbar Vertebral Joint with Autologous Tissue Substitute, Posterior Approach, Posterior Column, Open Approach (ICD-10-PCS; 2018-11-13)
PROC: 0ST20ZZ Resection of Lumbar Vertebral Disc, Open Approach (ICD-10-PCS; 2018-11-13)
PROC: 00NY0ZZ Release Lumbar Spinal Cord, Open Approach (ICD-10-PCS; 2018-11-13)
PROC: B01BZZZ Fluoroscopy of Spinal Cord (ICD-10-PCS; 2018-11-13)
PROC: 0JX70ZZ Transfer Back Subcutaneous Tissue and Fascia, Open Approach (ICD-10-PCS; 2018-11-13)
PROC: 0SG00AJ Fusion of Lumbar Vertebral Joint with Interbody Fusion Device, Posterior Approach, Anterior Column, Open Approach (ICD-10-PCS; principal; 2018-11-13 08:00)
DX: M51.26 Other intervertebral disc displacement, lumbar region (principal); M53.2X6 Spinal instabilities, lumbar region; M48.061 Spinal stenosis, lumbar region without neurogenic claudication; M54.41 Lumbago with sciatica, right side; G89.29 Other chronic pain; R31.0 Gross hematuria; M54.16 Radiculopathy, lumbar region; R55 Syncope and collapse; I95.89 Other hypotension; F33.9 Major depressive disorder, recurrent, unspecified
CPT/HCPCS: 36415; 70450-TC; 72131-TC; 72141-TC; 76000-TC-FY; 80048; 80053; 81003; 82962; 83735; 84703; 85025; 85027; 86850; 86900; 86901; 87086; 94760; 97116-GP; 97162-GP; J1644

== ENCOUNTER 2018-11-03 23:08 | Emergency (ER) | payer OTHER ==
[2018-11-03 23:38] VITALS: TEMP 98.9; BMI 28.1
--- NOTE | 2018-11-03 23:38 | PDOC ---
History of Present Illness - General Chief Complaint: Back Pain Stated Complaint: NUMBNESS TO BOTH LEGS Time Seen by Provider: 11/03/18 23:37 Past History - Past Medical History Allergies/Adverse Reactions: Allergies Allergy/AdvReac Type Severity Reaction Status Date / Time No Known Allergies Allergy Verified 11/03/18 23:31 Home Medications: Ambulatory Orders Fluoxetine HCl [Prozac -] 40 mg PO DAILY 07/21/18 traZODone HCL [Trazodone HCl] 100 mg PO DAILY 07/21/18 Ciprofloxacin [Cipro (Restricted To Id)] 500 mg PO Q12H 11/04/18 Gabapentin [Neurontin] 300 mg PO BID 11/04/18 Metoclopramide HCl [Reglan] 5 mg PO TID 11/04/18 Nabumetone [Relafen -] 500 mg PO BID 11/04/18 COPD: No Other medical history: Pt denies - Suicide/Smoking/Psychosocial Hx Smoking History: Never smoked Have you smoked in the past 12 months: No Information on smoking cessation initiated: No Hx Alcohol Use: No Drug/Substance Use Hx: No *Physical Exam - Vital Signs Last Vital Signs Temp Pulse Resp BP Pulse Ox 98.9 F 69 18 120/85 100 11/03/18 23:31 11/03/18 23:31 11/03/18 23:31 11/03/18 23:31 11/03/18 23:31 Medical Decision Making - Medical Decision Making HPI: 43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 Usually her left leg is tingling all the time but today the patient reports that her right leg feels numb intermittently. She reports that she attempted to walk this morning and was unable to due to 7/10 pain in both legs. The pain is described as "numb" and "tingling." She has been lying down all day due to pain and inability to walk. She decided to come to the ED due to this inability to walk. She currently has pain in her lower back that is rated 10/10. Her left leg is numb around the inner thigh and outer hull and outer foot. She has been dealing with chronic back pain due to the herniation since February 2018. Since then, she has been going to PT and has been following up with a neurosurgery. She last had PT on Saturday. She also receives steroid injections in her spine. The last injection was 3 weeks ago which did not help her pain. When asked what helps her with her pain, she stated: "not really anything." She denies any new or worsening pain at the injection site, as well as any fevers, weakness, or chills. She denies any recent unexplained weight loss, saddle anesthesia, bowel/bladder incontinence, IV drug use. PCP: Dr. Alejandra Michele Neurosurgeon: Dr. Solomon [facility]- Seen in ED here July 2018. MRI of back shows herniation L3/L4 with mass effect on the left nerve root in the recess, no evidence of spondylolisthesis, spondylolysis Soc Hx- denies alcohol, IV drugs, smo ROS: Constitutional: no fever, no chills HEENT: no throat pain, no dysphagia Cardiovascular: no chest pain, no palpitations Respiratory: no cough, no shortness of breath Gastrointestinal: no abdominal pain, no nausea Genitourinary: no dysuria, no hematuria Musculoskeletal: +back pain, +leg pain Skin: no rash, no itching Neurologic: no headache, no weakness PE: General: Awake, alert, and fully oriented, tearful Head: No signs of trauma Eyes: EOMI, sclera anicteric ENT: Moist mucus membranes Neck: Normal ROM, supple Lungs: Lungs clear, Normal breath sounds Cardio: Regular rhythm, S1 and S2 present Abdomen: Soft, nontender, no CVA tenderness Extremities: Distal pulses present SKIN: Warm, Dry, normal turgor Neurologic: Cranial nerves II through XII grossly intact. Normal speech. Back: Tender to palpation midline L3-L4; 3/5 muscle strength left LE, 5/5 muscle strength right LE. Negative Collazo test (neg for malingering). Positive straight leg raise bilaterally. Sensation intact right LE. Sensation decreased left inner thigh, outer lower leg, outer foot. Pulses 2+ LE B/L. Deferred gait exam. No overlying rash or lesion. ED Course/MDM: DDX including but not limited to intractable pain 2/2 herniation, rule out cauda equina-unlikely due to no red flag symptoms, spinal epidural abscess- unlikely due to lack of fever or IVDU history, UTI/pyelonephritis-currently being treated with oral antibiotic IV toradol, topical lidocaine patch (patient has history of bilateral tubal ligation) Will reassess 11/03/18 23:38 Patient sleeping in stretcher. Reporting pain is improved in right leg, but not in left after receiving toradol. 11/04/18 01:46 Patient able to stand but could not ambulate due to pain which is now 9/10. Explained benefits and risks of stronger medicine and patient voiced understanding. Valium ordered 11/04/18 02:01 Dexmethasone ordered 11/04/18 02:31 Patient signed out to Dr. Grace and night team 11/04/18 02:44 *DC/Admit/Observation/Transfer Diagnosis at time of Disposition: Back pain Qualifiers: Back pain location: low back pain Chronicity: chronic Back pain laterality: midline Sciatica presence: with sciatica Sciatica laterality: bilateral sciatica Qualified Code(s): M54.41 - Lumbago with sciatica, right side - Referrals Referrals: Liz Leon MD [Primary Care Provider] - Pawel Sterling MD, FAANS [Staff Physician] - - Patient Instructions Printed Discharge Instructions: DI for Back Pain With Sciatica Additional Instructions: You came to the emergency department for back pain. We gave you medicine which improved your pain. Follow up with your neurosurgeon within 72 hours to discuss this visit and to further assess your symptoms. Call tomorrow and make an appointment. Your workup is not complete until you do so. Immediate medical attention is required if you have back pain and : numbness in the genital or rectal area, loss of bowel or bladder control, difficulty with urination; fever, unexplained weight loss, or other signs of illness or infection. If you think you are having an emergency, call for emergency medical services or present to the emergency department right away. ==== Usted vino al departamento de emergencias por dolor de espalda. Le dimos medicamentos que mejoraron deng dolor. Dayne un seguimiento con deng neurocirujano dentro de las 72 horas para analizar esta visita y evaluar alesia sntomas. Llame maana y dayne husam hamzah. Deng trabajo no est completo hasta que lo dayne. Se requiere atencin mdica inmediata si tiene dolor de espalda y: entumecimiento en el ceci genital o rectal, prdida del control del intestino o la vejiga, dificultad para orinar; fiebre, prdida de peso inexplicable u otros signos de enfermedad o infeccin. Si abigail que tiene husam emergencia, llame a los servicios mdicos de emergencia o presntese en el departamento de emergencias de inmediato. - Post Discharge Activity
[2018-11-04] MEDS ORDERED: KETOROLAC TROMETHAMINE 30 MG/1 ML VIAL IVPUSH ONE (00:39)
[2018-11-04] MEDS ORDERED: LIDOCAINE 5% TOPICAL PATCH TP ONE (00:53)
[2018-11-04] MEDS ORDERED: KETOROLAC TROMETHAMINE 30 MG/1 ML VIAL ONE (01:05)
[2018-11-04] MEDS ORDERED: LIDOCAINE 5% TOPICAL PATCH ONE (01:05)
--- NOTE | 2018-11-04 01:18 | PDOC ---
Attending Attestation - Resident Resident Name: Dina Denton - ED Attending Attestation I have performed the following: I have examined & evaluated the patient, The case was reviewed & discussed with the resident, I agree w/resident's findings & plan, Exceptions are as noted - HPI HPI: 11/04/18 01:06 43 yo female with chronic low back pain p/w worsening back pain. Denies any recent trauma HPI pt is being followed by Dr Sterling MRI on 08/01/18 showed moderate degenerative ds of the lumbosacral spine w straightening of the lumbar lordosis, left side L3-L4 herniation with mass effect on left nerve root -minimal degenerative changes articular facets L2-L3,L3-L4 -no evidence of spongydylolisthesis,no severe stenosis, no spondylolysis -fibroid in anterior wall of uterus - Physicial Exam PE: 11/04/18 01:[address] Denton's physical exam - Medical Decision Making 11/04/18 01:19 this 43 yo female w chronic low back pain , no saddle anesthesia,no fecal or bladder incontinence,normal rectal tone 11/04/18 01:29 plan pain meds and reassess
[2018-11-04] MEDS ORDERED: diazePAM CARPU-JECT 10 MG/2 ML DISP.SYRIN IVPUSH ONE (02:03)
[2018-11-04] MEDS ORDERED: DEXAMETHASONE SOD PHOSPHATE 4 MG/1 ML VIAL IVPUSH ONE (02:29)
[2018-11-04] MEDS ORDERED: diazePAM 5 MG TABLET PO ONE (02:31)
[2018-11-04] MEDS ORDERED: DEXAMETHASONE SOD PHOSPHATE 10 MG/1 ML VIAL ONE (02:52)
[2018-11-04] MEDS ORDERED: diazePAM 5 MG TABLET ONE (02:53)
--- NOTE | 2018-11-04 03:18 | PDOC ---
*Physical Exam - Vital Signs Last Vital Signs Temp Pulse Resp BP Pulse Ox 98.9 F 69 18 120/85 100 11/03/18 23:31 11/03/18 23:31 11/03/18 23:31 11/03/18 23:31 11/03/18 23:31 ED Treatment Course - Medications Given in the ED: ED Medications Discontinued Medications Generic Name Dose Route Start Last Admin Trade Name Gretchen PRN Reason Stop Dose Admin Dexamethasone Sodium Phosphate 8 mg 11/04/18 02:29 11/04/18 02:58 Decadron Injection - IVPUSH 11/04/18 02:30 8 mg ONCE ONE Administration Diazepam 5 mg 11/04/18 02:03 11/04/18 02:50 Valium Injection - IVPUSH 11/04/18 02:04 Not Given ONCE ONE Diazepam 5 mg 11/04/18 02:31 11/04/18 02:58 Valium - PO 11/04/18 02:32 5 mg ONCE ONE Administration Ketorolac Tromethamine 30 mg 11/04/18 00:39 11/04/18 01:09 Toradol Injection - IVPUSH 11/04/18 00:40 30 mg ONCE ONE Administration Lidocaine 1 patch 11/04/18 00:53 11/04/18 01:10 Lidoderm Patch - TP 11/04/18 00:54 1 patch ONCE ONE Administration *DC/Admit/Observation/Transfer Diagnosis at time of Disposition: Back pain Qualifiers: Back pain location: low back pain Chronicity: chronic Back pain laterality: midline Sciatica presence: with sciatica Sciatica laterality: bilateral sciatica Qualified Code(s): M54.41 - Lumbago with sciatica, right side - Referrals Referrals: Pawel Sterling MD, FAANS [Staff Physician] - Liz Leon MD [Primary Care Provider] - - Patient Instructions Printed Discharge Instructions: DI for Back Pain With Sciatica Additional Instructions: You came to the emergency department for back pain. We gave you medicine which improved your pain. Follow up with your neurosurgeon within 72 hours to discuss this visit and to further assess your symptoms. Call tomorrow and make an appointment. Your workup is not complete until you do so. Immediate medical attention is required if you have back pain and : numbness in the genital or rectal area, loss of bowel or bladder control, difficulty with urination; fever, unexplained weight loss, or other signs of illness or infection. If you think you are having an emergency, call for emergency medical services or present to the emergency department right away. ==== Usted vino al departamento de emergencias por dolor de espalda. Le dimos medicamentos que mejoraron deng dolor. Dayne un seguimiento con deng neurocirujano dentro de las 72 horas para analizar esta visita y evaluar alesia sntomas. Llame maana y dayne husam hamzah. Deng trabajo no est completo hasta que lo dayne. Se requiere atencin mdica inmediata si tiene dolor de espalda y: entumecimiento en el ceci genital o rectal, prdida del control del intestino o la vejiga, dificultad para orinar; fiebre, prdida de peso inexplicable u otros signos de enfermedad o infeccin. Si abigail que tiene husam emergencia, llame a los servicios mdicos de emergencia o presntese en el departamento de emergencias de inmediato. - Post Discharge Activity
[2018-11-04 03:32] VITALS: BP 126/83; PULSE 63
[2018-11-04] MEDS ORDERED: LIDOCAINE PATCH REMOVAL MC SCH (22:00)
== END 2018-11-04 03:29 | disposition home or self-care (01) ==
LOC: JER 23:08
PROC: 3E0333Z Introduction of Anti-inflammatory into Peripheral Vein, Percutaneous Approach (ICD-10-PCS; principal; 2018-11-03)
DX: M54.41 Lumbago with sciatica, right side (principal); M54.42 Lumbago with sciatica, left side; M51.26 Other intervertebral disc displacement, lumbar region
CPT/HCPCS: 96374; 99283-25

== ENCOUNTER 2019-04-19 14:45 | Inpatient (IN) | payer OTHER ==
[2019-04-19] MEDS ORDERED: morphine CARPU-JECT 4 MG/1 ML DISP.SYRIN IVPUSH ONE (16:44)
--- NOTE | 2019-04-19 16:53 | PDOC ---
History of Present Illness - General Chief Complaint: Injury Stated Complaint: FALL Time Seen by Provider: 04/19/19 14:55 - History of Present Illness Initial Comments: 04/19/19 16:52 43 y/o F with PMH of chronic low back pain s/p L3-4 laminectomies with L3-4 posterior fusion presenting to the ED S/P escalator fall. Pt was in [employer]HELLE's shopping when she fell, hit her head and left side as she was getting on the escalator. She initially endorsed feeling dizzy prior to the fall then she endorsed feeling dizzy afterwards. She also complains of left sided headache. She denies any precipitating symptoms such as blurry vision, chest pain, palpitations, SOB, loss of consciousness. Her left sided pain is undescribable by patient, with no associated weakness/numbness. pain is exacerbated by movement. 10/10 in severity. PMH and PSH: As above Social : denies PE: Gen: tearful and in pain HEENT: PERRLA, moist membranes CHEST: vesicular breath sounds b/l, no tenderness on palpation HEART: RRR no Murmur, rubs or gallops Abdomen: +BS NTND Neuro: CN 2-12 intact, motor strength 5/5 sensation intact throughout MSK, Normal ROM but slightly reduced due to pain on left body side and back. increased pain on palpation in prior lumbar laminectomy site. Psych : tearful but no active depression Skin: normal , warm and dry Assessment: based on HPI and PE, DDX include: traumatic fall vs syncopal fall ( cardiac vs neurologic) 04/19/19 16:53 Plan: head CT and C spine CT scan, lumbar Xray, cardiac profile, EKG, UA, CBC, CMP morphine 4mg once will reassess later 04/19/19 17:16 CBC WBC 6.7 K/mm3 (4.0-10.0) 04/19/19 17:00 RBC 4.24 M/mm3 (3.60-5.2) 04/19/19 17:00 Hgb 13.5 GM/dL (10.7-15.3) 04/19/19 17:00 Hct 40.1 % (32.4-45.2) 04/19/19 17:00 MCV 94.6 fl (80-96) 04/19/19 17:00 MCH 31.7 pg (25.7-33.7) 04/19/19 17:00 MCHC 33.5 g/dl (32.0-36.0) 04/19/19 17:00 RDW 13.1 % (11.6-15.6) 04/19/19 17:00 Plt Count 314 K/MM3 (134-434) 04/19/19 17:00 MPV 9.3 fl (7.5-11.1) 04/19/19 17:00 Absolute Neuts (auto) 4.4 K/mm3 (1.5-8.0) 04/19/19 17:00 Neutrophils % 66.3 % (42.8-82.8) 04/19/19 17:00 Lymphocytes % 25.5 % (8-40) 04/19/19 17:00 Monocytes % 7.8 % (3.8-10.2) 04/19/19 17:00 Eosinophils % 0.2 % (0-4.5) 04/19/19 17:00 Basophils % 0.2 % (0-2.0) 04/19/19 17:00 Nucleated RBC % 0 % (0-0) 04/19/19 17:00 unremarkable 04/19/19 17:37 CMP Sodium 140 mmol/L (136-145) 04/19/19 17:00 Potassium 3.4 mmol/L (3.5-5.1) L 04/19/19 17:00 Chloride 108 mmol/L (98-107) H 04/19/19 17:00 Carbon Dioxide 25 mmol/L (21-32) 04/19/19 17:00 Anion Gap 7 MMOL/L (8-16) L 04/19/19 17:00 BUN 13.8 mg/dL (7-18) 04/19/19 17:00 Creatinine 0.8 mg/dL (0.55-1.3) 04/19/19 17:00 Est GFR (CKD-EPI)AfAm 106.13 04/19/19 17:00 Est GFR (CKD-EPI)NonAf 91.57 04/19/19 17:00 Random Glucose 88 mg/dL (74-106) 04/19/19 17:00 Calcium 9.4 mg/dL (8.5-10.1) 04/19/19 17:00 Total Bilirubin 0.4 mg/dL (0.2-1) 04/19/19 17:00 AST 13 U/L (15-37) L 04/19/19 17:00 ALT 19 U/L (13-61) 04/19/19 17:00 Alkaline Phosphatase 61 U/L (45-117) 04/19/19 17:00 Creatine Kinase 99 U/L (26-192) 04/19/19 17:00 Troponin I < 0.02 ng/ml (0.00-0.05) 04/19/19 17:00 Total Protein 7.3 g/dl (6.4-8.2) 04/19/19 17:00 Albumin 4.0 g/dl (3.4-5.0) 04/19/19 17:00 mildly hypokalemic at 3.4. willl replete with Kdur once trop negative pending imaging results 04/19/19 18:02 lumbar Xray Lumbar pedicle screws and fusion rods with disc prosthesis in place L3/L4 level. Intact sacrum and sacroiliac joints Crosstable lateral view with intact hardware. No definite signs of acute fracture or dislocation in the upper lumbar vertebra , with some limitation in detail L5 and S1 levels on the crosstable lateral view. L5 vertebra grossly intact. Upper sacrum obscured. 04/19/19 18:[address] w/o contrast No evidence of acute fracture or subluxation C spine w/o contrast no acute intracranial hemorrhage, no acute changes in the brain. 04/19/19 18:59 Pt c/o Headache will give IV tylenol 04/19/19 19:01 Pt stable for discharge.discussed with pt if symptoms progress or develop focal neurological deficits, bleeding please return to the Emergency room immediately 04/19/19 19:47 Past History - Past Medical History Allergies/Adverse Reactions: Allergies Allergy/AdvReac Type Severity Reaction Status Date / Time No Known Allergies Allergy Verified 04/19/19 14:53 Home Medications: Ambulatory Orders traZODone HCL [Trazodone HCl] 100 mg PO PRN PRN 07/21/18 Gabapentin [Neurontin] 300 mg PO BID 11/04/18 Oxycodone HCl/Acetaminophen [Oxycodone-Acetaminophen 5-325] 1 each PO PRN PRN Docusate Sodium [Colace -] 100 mg PO TID #90 capsule 11/17/18 Ferrous Sulfate [Feosol] 325 mg PO DAILY #30 ud 11/17/18 Folic Acid - 1 mg PO DAILY #30 tablet 11/17/18 traMADol HCL [Ultram -] 50 mg PO Q8H PRN #15 tablet MDD 4 11/17/18 Amitriptyline HCl [Elavil -] 50 mg PO HS 04/19/19 Anemia: No Asthma: No Cancer: No Cardiac Disorders: No CVA: No COPD: No CHF: No Dementia: No Diabetes: No GI Disorders: Yes ("acid") Disorders: No HTN: No Hypercholesterolemia: No Liver Disease: No Seizures: No Thyroid Disease: No - Psycho Social/Smoking Cessation Hx Smoking History: Never smoked Have you smoked in the past 12 months: No Hx Alcohol Use: No Drug/Substance Use Hx: No Substance Use Type: None Hx Substance Use Treatment: No Review of Systems - Review of Systems Able to Perform ROS?: Yes Is the patient limited Serbian proficient: No Constitutional: Yes: Weight Stable. No: Chills, Fever HEENTM: No: Eye Pain, Recent change in vision Respiratory: No: Cough, Shortness of Breath Cardiac (ROS): No: Chest Pain, Lightheadedness, Palpitations, Syncope, Chest Tightness ABD/GI: No: Constipated, Diarrhea, Nausea, Vomiting : No: Burning, Dysuria, Discharge, Frequency Musculoskeletal: Yes: Back Pain. No: Joint Pain, Joint Swelling Integumentary: No: Change in Color Neurological: Yes: Headache, Dizziness. No: Numbness, Weakness, Unsteady Gait Psychiatric: Yes: Frequent Crying *Physical Exam - Vital Signs Last Vital Signs Temp Pulse Resp BP Pulse Ox 98 F 76 18 127/91 100 04/19/19 14:51 04/19/19 14:51 04/19/19 14:51 04/19/19 14:51 04/19/19 14:51 ED Treatment Course - LABORATORY CBC & Chemistry Diagram: 04/19/19 17:00 04/19/19 17:00 - RADIOLOGY Radiology Studies Ordered: Category Date Time Status CERVICAL SPINE CT W/O CONTR [CT] Stat CT Scan 04/19/19 16:[address] WITHOUT CONTRAST [CT] Stat CT Scan 04/19/19 16:41 Ordered SPINE-LUMBAR ONLY [RAD] Stat Radiology 04/19/19 16:41 Ordered Discharge - Discharge Information Problems reviewed: Yes Clinical Impression/Diagnosis: Fall (on) (from) other stairs and steps, initial encounter Back pain Qualifiers: Back pain location: back pain in unspecified location Chronicity: unspecified Back pain laterality: unspecified Qualified Code(s): M54.9 - Dorsalgia, unspecified Condition: Improved Disposition: HOME - Admission No - Follow up/Referral Referrals: Lorenzo Gomez MD [Primary Care Provider] - - Patient Discharge Instructions Patient Printed Discharge Instructions: DI for Post-traumatic Headache, How to Prevent Falls Additional Instructions: You came to the ED because of a fall. we performed test and imaging and they were normal. If you were to begin to experience numbness, weakness, worsening back pain, difficulty urinating or passing stool, chest pain, SOB or bleeding please return to the emergency room immediately - Post Discharge Activity Work/Back to School Note: Back to Work
[2019-04-19] MEDS ORDERED: MORPHINE SULFATE 2 MG/ML VIAL ONE (17:01)
[2019-04-19 17:22] LABS: BASO % 0.2 % (0-2.0); EOS % 0.2 % (0-4.5); HEMATOCRIT 40.1 % (32.4-45.2); HEMOGLOBIN 13.5 GM/dL (10.7-15.3); LYMPH % 25.5 % (8-40); MCH 31.7 pg (25.7-33.7); MCHC 33.5 g/dl (32.0-36.0); MEAN CELL VOLUME 94.6 fl (80-96); MEAN PLT VOLUME 9.3 fl (7.5-11.1); MONO % 7.8 % (3.8-10.2); NEUT % 66.3 % (42.8-82.8); PLATELET COUNT 314 K/MM3 (134-434); RBC 4.24 M/mm3 (3.60-5.2); RDW 13.1 % (11.6-15.6); WHITE BLOOD COUNT 6.7 K/mm3 (4.0-10.0)
[2019-04-19 17:38] LABS: INR 1.03 (0.83-1.09); PROTHROMBIN TIME (PATIENT) 12.1 SEC (9.7-13.0)
[2019-04-19 17:40] LABS: ACTIVATED PTT 32.8 SECONDS (25.2-36.5)
--- NOTE | 2019-04-19 17:43 | PDOC ---
Attending Attestation - Resident Resident Name: Caren Cedillo - ED Attending Attestation I have performed the following: I have examined & evaluated the patient, The case was reviewed & discussed with the resident, I agree w/resident's findings & plan, Exceptions are as noted - HPI HPI: 43 yo F history low back pain s/p L3-4 laminectomy and fusion presents s/p fall on escalator. She states she felt dizzy, fell, hit head as she fell back. Denies cp, SOB, leg swelling, weakness, numbness, N/V. She states she is unable to walk due to pain. - Physicial Exam PE: GENERAL: Awake, alert, and fully oriented, in no acute distress HEAD: No signs of trauma EYES: PERRLA, EOMI, sclera anicteric, conjunctiva clear ENT: Auricles normal inspection, hearing grossly normal, nares patent, oropharynx clear without exudates. Moist mucosa NECK: Normal ROM, supple, no lymphadenopathy, JVD, or masses LUNGS: Breath sounds equal, clear to auscultation bilaterally. No wheezes, and no crackles HEART: Regular rate and rhythm, normal S1 and S2, no murmurs, rubs or gallops ABDOMEN: Soft, nontender, normoactive bowel sounds. No guarding, no rebound. No masses EXTREMITIES: Normal range of motion, no edema. No clubbing or cyanosis. No cords, erythema, or tenderness NEUROLOGICAL: Cranial nerves II through XII grossly intact. Normal speech. Motor and sensation intact. Gait not tested due to c/o severe pain, difficulty walking due to pain. SKIN: Warm, dry, normal turgor, no rashes or lesions noted. SPINE: +Midline lumbar spinal tenderness. No overlying skin changes, no stepoffs. - Medical Decision Making Pt presents with severe back pain s/p fall. Initially stated she was dizzy prior to fall, but later stated she was dizzy after the fall. ACS and PE unlikely. Will image, and treat pain. If pain is intractable may require admission.
[2019-04-19 17:47] LABS: BLOOD UREA NITROGEN 13.8 mg/dL (7-18); CREATININE 0.8 mg/dL (0.55-1.3)
[2019-04-19 17:48] LABS: BILIRUBIN,TOTAL 0.4 mg/dL (0.2-1); CALCIUM 9.4 mg/dL (8.5-10.1); POTASSIUM 3.4 mmol/L (3.5-5.1); TOT PROT 7.3 g/dl (6.4-8.2)
[2019-04-19] MEDS ORDERED: KCL 10 MEQ IVPB 10 MEQ/100 ML INFUS.BAG IVPB SCH (18:15)
[2019-04-19] MEDS ORDERED: POTASSIUM CHLORIDE TABS 20 MEQ TABLET.ER (FP) PO ONE ×2 (18:46→18:55)
[2019-04-19] MEDS ORDERED: ACETAMINOPHEN 1000 MG/100 ML VIAL (NON FORMULARY) IVPB ONE (18:59)
[2019-04-19] MEDS ORDERED: ACETAMINOPHEN INJECTION 100 ML IVPB ONE (19:15)
[2019-04-19] MEDS ORDERED: KETOROLAC TROMETHAMINE 30 MG/1 ML VIAL IM ONE (20:40)
[2019-04-19] MEDS ORDERED: KETOROLAC TROMETHAMINE 60 MG/2 ML VIAL IM ONE (20:41)
--- NOTE | 2019-04-19 20:42 | PDOC ---
*Physical Exam - Vital Signs Last Vital Signs Temp Pulse Resp BP Pulse Ox 98.0 F 65 17 120/62 98 04/19/19 20:04 04/19/19 20:04 04/19/19 20:04 04/19/19 20:04 04/19/19 20:04 ED Treatment Course - LABORATORY CBC & Chemistry Diagram: 04/19/19 17:00 04/19/19 17:00 - ADDITIONAL ORDERS Additional order review: Laboratory Results 04/19/19 04/19/19 04/19/19 17:00 17:00 17:00 PT with INR 12.10 INR 1.03 PTT (Actin FS) 32.8 Sodium 140 Potassium 3.4 L Chloride 108 H Carbon Dioxide 25 Anion Gap 7 L BUN 13.8 Creatinine 0.8 Est GFR (CKD-EPI)AfAm 106.13 Est GFR (CKD-EPI)NonAf 91.57 Random Glucose 88 Calcium 9.4 Total Bilirubin 0.4 AST 13 L ALT 19 Alkaline Phosphatase 61 Creatine Kinase 99 Troponin I < 0.02 Total Protein 7.3 Albumin 4.0 04/19/19 17:00 RBC 4.24 MCV 94.6 MCHC 33.5 RDW 13.1 MPV 9.3 Neutrophils % 66.3 Lymphocytes % 25.5 Monocytes % 7.8 Eosinophils % 0.2 Basophils % 0.2 - Medications Given in the ED: ED Medications Discontinued Medications Generic Name Dose Route Start Last Admin Trade Name Rodneyq PRN Reason Stop Dose Admin Acetaminophen 1,000 mg 04/19/19 18:59 04/19/19 19:19 Ofirmev Injection - IVPB 04/19/19 19:00 1,000 mg ONCE ONE Administration Potassium Chloride 10 meq in 100 mls @ 100 mls/hr 04/19/19 18:15 04/19/19 18: 52 Potassium Chloride 10 Meq Premix Ivpb - IVPB 04/19/19 20:14 Not Given Q60M BROCK Morphine Sulfate 4 mg 04/19/19 16:44 04/19/19 17:05 Morphine Injection - IVPUSH 04/19/19 16:45 4 mg ONCE ONE Administration Potassium Chloride 40 meq 04/19/19 18:46 04/19/19 19:00 K-Dur - PO 04/19/19 18:47 40 meq ONCE ONE Administration Medical Decision Making - Medical Decision Making 02/16/20 20:42 Pt signed out to me; states that she is in too much pain to ambulate. 04/19/19 23:35 She will be admitted Discharge - Discharge Information Problems reviewed: Yes Clinical Impression/Diagnosis: Fall (on) (from) other stairs and steps, initial encounter Back pain Qualifiers: Back pain location: back pain in unspecified location Chronicity: unspecified Back pain laterality: unspecified Qualified Code(s): M54.9 - Dorsalgia, unspecified Condition: Improved - Follow up/Referral - Patient Discharge Instructions - Post Discharge Activity
[2019-04-19] MEDS ORDERED: METHOCARBAMOL 500 MG TABLET PO ONE (20:43)
[2019-04-19] MEDS ORDERED: ACETAMINOPHEN 1000 MG/100 ML VIAL (NON FORMULARY) IVPB PRN (23:14)
[2019-04-20] MEDS ORDERED: ACETAMINOPHEN WITH CODEINE 300MG/30MG TABLET PO ONE (01:15)
--- NOTE | 2019-04-20 01:55 | HP ---
<Elizabeth Keita - Last Filed: 04/20/19 01:21> CHIEF COMPLAINT: Difficulty Walking PCP: Dr. Michele HISTORY OF PRESENT ILLNESS: Resident Care Manager Rn used: Snehal, ID# [id number] PMH of lumbar disc herniation s/p laminectomy and fusion who presents today after a near syncopal episode and fall. Patient reports shopping at [employer] today , and starting to feel dizzy as she was climbing stairs, with worsening dizziness as she reached the top of the stairs and then subsequently falling. She braced her fall with the left arm, and fell on her left side. She denies hitting her head and loss of consciousness. She denies any chest pain, shortness of breath, and weakness preceding the fall. However she endorses shortness of breath, confusion, palpitations and pain in her left side. She endorses a meal of coffee and toast in the morning, with no other fluid hydration or meals before the fall. She is not able to recall if she tripped on any objects while climbing the stairs. She denies a history of falls. Patient has chronic back pain for which she takes percocet as needed, she last took 1 pill yesterday night. She currently reports 8/10 pain in the lumbar region, but denies chest pain, shortness of breath, abdominal pain, nausea, vomiting, confusion, urinary and fecal incontinence. ER course was notable for: (1)Patient was unable to ambulate with ED staff on repeated attempts. (2)Patient was given Morphine 4mg, Tylenol 1000 mg IV, Ketoralac 60 IM (3)Head CT completed- negative, CT spine completed- negative, lumbar x-ray completed- negative Recent Travel: None PAST MEDICAL HISTORY: Denies PAST SURGICAL HISTORY: Laminectomy and fusion L3-L4 Social History: Smoking: Denies Alcohol: Denies Drugs: Denies Lives at home with son Ambulates without assistance at home Allergies No Known Allergies Allergy (Verified 04/19/19 14:53) HOME MEDICATIONS: Home Medications Medication Instructions Recorded traZODone HCL [Trazodone HCl] 100 mg PO PRN PRN 07/21/18 Gabapentin [Neurontin] 300 mg PO BID 11/04/18 Oxycodone HCl/Acetaminophen 1 each PO PRN PRN 11/12/18 [Oxycodone-Acetaminophen 5-325] Docusate Sodium [Colace -] 100 mg PO TID #90 capsule 11/17/18 Ferrous Sulfate [Feosol] 325 mg PO DAILY #30 ud 11/17/18 Folic Acid - 1 mg PO DAILY #30 tablet 11/17/18 traMADol HCL [Ultram -] 50 mg PO Q8H PRN #15 tablet MDD 4 11/17/18 Amitriptyline HCl [Elavil -] 50 mg PO HS 04/19/19 REVIEW OF SYSTEMS CONSTITUTIONAL: Absent: fever, chills, diaphoresis, generalized weakness, malaise, loss of appetite, weight change HEENT: Absent: rhinorrhea, nasal congestion, throat pain, throat swelling, difficulty swallowing, mouth swelling, ear pain, eye pain, visual changes CARDIOVASCULAR: Present: palpitations after fall Absent: chest pain, syncope, irregular heart rate, lightheadedness, peripheral edema RESPIRATORY: Present: SOB after fall Absent: cough, dyspnea with exertion, orthopnea, wheezing, stridor, hemoptysis GASTROINTESTINAL: Absent: abdominal pain, abdominal distension, nausea, vomiting, diarrhea, constipation, melena, hematochezia GENITOURINARY: Absent: dysuria, frequency, urgency, hesitancy, hematuria, flank pain, genital pain MUSCULOSKELETAL: Present: back pain Absent: myalgia, arthralgia, joint swelling, neck pain SKIN: Absent: rash, itching, pallor HEMATOLOGIC/IMMUNOLOGIC: Absent: easy bleeding, easy bruising, lymphadenopathy, frequent infections ENDOCRINE: Absent: unexplained weight gain, unexplained weight loss, heat intolerance, cold intolerance NEUROLOGIC: Absent: headache, focal weakness or paresthesias, dizziness, unsteady gait, seizure, mental status changes, bladder or bowel incontinence PHYSICAL EXAMINATION Vital Signs - 24 hr 04/19/19 04/19/19 04/19/19 14:51 20:04 23:55 Temperature 98 F 98.0 F 97.8 F Pulse Rate 76 Pulse Rate [ 65 72 Left Brachial] Respiratory 18 17 20 Rate Blood Pressure 127/91 Blood Pressure 120/62 128/84 [Left Arm] O2 Sat by Pulse 100 98 100 Oximetry (%) GENERAL: Awake, alert, and fully oriented, in mild discomfort HEAD: Normal with no signs of trauma. EYES: Pupils equal, round and reactive to light NECK: Normal range of motion, supple without lymphadenopathy, JVD, or masses. LUNGS: Breath sounds equal, clear to auscultation bilaterally. No wheezes, and no crackles. No accessory muscle use. HEART: Regular rate and rhythm, normal S1 and S2 without murmur, rub or gallop. ABDOMEN: Soft, nontender, not distended, normoactive bowel sounds, no guarding, no rebound, no masses. No hepatomegaly or splenomegaly. MUSCULOSKELETAL: nozzle tender to palpation along midline, tender in the lumbosacral region. paraspinal tenderness in the left lumbar region. UPPER EXTREMITIES: 2+ pulses, warm, well-perfused. No cyanosis. No clubbing. No peripheral edema. LOWER EXTREMITIES: 2+ pulses, warm, well-perfused. No calf tenderness. No peripheral edema. NEUROLOGICAL: Cranial nerves II-XII intact. 3/5 strength b/l lower extremities PSYCHIATRIC: Cooperative. Good eye contact. Appropriate mood and affect. Laboratory Results - last 24 hr 04/19/19 04/19/19 04/19/19 17:00 17:00 17:00 WBC 6.7 RBC 4.24 Hgb 13.5 Hct 40.1 MCV 94.6 MCH 31.7 MCHC 33.5 RDW 13.1 Plt Count 314 MPV 9.3 Absolute Neuts (auto) 4.4 Neutrophils % 66.3 Lymphocytes % 25.5 Monocytes % 7.8 Eosinophils % 0.2 Basophils % 0.2 Nucleated RBC % 0 PT with INR INR PTT (Actin FS) Sodium 140 Potassium 3.4 L Chloride 108 H Carbon Dioxide 25 Anion Gap 7 L BUN 13.8 Creatinine 0.8 Est GFR (CKD-EPI)AfAm 106.13 Est GFR (CKD-EPI)NonAf 91.57 Random Glucose 88 Calcium 9.4 Total Bilirubin 0.4 AST 13 L ALT 19 Alkaline Phosphatase 61 Creatine Kinase 99 Troponin I < 0.02 Total Protein 7.3 Albumin 4.0 04/19/19 17:00 WBC RBC Hgb Hct MCV MCH MCHC RDW Plt Count MPV Absolute Neuts (auto) Neutrophils % Lymphocytes % Monocytes % Eosinophils % Basophils % Nucleated RBC % PT with INR 12.10 INR 1.03 PTT (Actin FS) 32.8 Sodium Potassium Chloride Carbon Dioxide Anion Gap BUN Creatinine Est GFR (CKD-EPI)AfAm Est GFR (CKD-EPI)NonAf Random Glucose Calcium Total Bilirubin AST ALT Alkaline Phosphatase Creatine Kinase Troponin I Total Protein Albumin ASSESSMENT/PLAN: 43 F PMH lumbar disc herniation s/p laminectomy and fusion who presents today with possible syncopal fall. 1) Fall- mechanical vs syncopal in nature -Patient was able to recall events of fall, however describes symptoms related to a possible syncope event- confusion, palpitations, shortness of breath. Fall may likely be mechanical as loss of conciousness was denied -Currently vitals wnl -Cardiac monitoring -Echo -EKG 2) Acute lower back pain - Lumbar x-ray negative for fractures - Rates pain as different and worse than chronic pain she experiences and takes PRN oxycodone for - Morphine, Ketorolac, and Acetaminophen given in ED - Lumbar CT. Will consult Dr. Solomon( performed spine surgery on November 2018 for patient) if needed based on results. - Tylenol 3 PO given stat - Acetaminophen 1000 IV Q6H, Lidocaine patches. 3) Lower extremity weakness -Patient has b/l weakness and is unable to walk - Lumbar x-ray negative, head ct negative - F/U Lumbar spine CT - Physical therapy ordered F: Oral hydration E: Monitor K+ N: Regular diet DVT: Lovenox SQ BID Dispo: Admitted to telemetry ATTENDING PHYSICIAN STATEMENT I saw and evaluated the patient. I reviewed the resident's note and discussed the case with the resident. I agree with the resident's findings and plan as documented. SUBJECTIVE: OBJECTIVE: ASSESSMENT AND PLAN: <Jeovany Huang - Last Filed: 04/20/19 06:15> CHIEF COMPLAINT: PCP: HISTORY OF PRESENT ILLNESS: ER course was notable for: (1) (2) (3) Recent Travel: PAST MEDICAL HISTORY: PAST SURGICAL HISTORY: Social History: Smoking: Alcohol: Drugs: Allergies No Known Allergies Allergy (Verified 04/19/19 14:53) HOME MEDICATIONS: Home Medications Medication Instructions Recorded traZODone HCL [Trazodone HCl] 100 mg PO PRN PRN 07/21/18 Gabapentin [Neurontin] 300 mg PO BID 11/04/18 Oxycodone HCl/Acetaminophen 1 each PO PRN PRN 11/12/18 [Oxycodone-Acetaminophen 5-325] Docusate Sodium [Colace -] 100 mg PO TID #90 capsule 11/17/18 Ferrous Sulfate [Feosol] 325 mg PO DAILY #30 ud 11/17/18 Folic Acid - 1 mg PO DAILY #30 tablet 11/17/18 traMADol HCL [Ultram -] 50 mg PO Q8H PRN #15 tablet MDD 4 11/17/18 Amitriptyline HCl [Elavil -] 50 mg PO HS 04/19/19 REVIEW OF SYSTEMS CONSTITUTIONAL: Absent: fever, chills, diaphoresis, generalized weakness, malaise, loss of appetite, weight change HEENT: Absent: rhinorrhea, nasal congestion, throat pain, throat swelling, difficulty swallowing, mouth swelling, ear pain, eye pain, visual changes CARDIOVASCULAR: Absent: chest pain, syncope, palpitations, irregular heart rate, lightheadedness , peripheral edema RESPIRATORY: Absent: cough, shortness of breath, dyspnea with exertion, orthopnea, wheezing, stridor, hemoptysis GASTROINTESTINAL: Absent: abdominal pain, abdominal distension, nausea, vomiting, diarrhea, constipation, melena, hematochezia GENITOURINARY: Absent: dysuria, frequency, urgency, hesitancy, hematuria, flank pain, genital pain MUSCULOSKELETAL: Absent: myalgia, arthralgia, joint swelling, back pain, neck pain SKIN: Absent: rash, itching, pallor HEMATOLOGIC/IMMUNOLOGIC: Absent: easy bleeding, easy bruising, lymphadenopathy, frequent infections ENDOCRINE: Absent: unexplained weight gain, unexplained weight loss, heat intolerance, cold intolerance NEUROLOGIC: Absent: headache, focal weakness or paresthesias, dizziness, unsteady gait, seizure, mental status changes, bladder or bowel incontinence PSYCHIATRIC: Absent: anxiety, depression, suicidal or homicidal ideation, hallucinations. PHYSICAL EXAMINATION Vital Signs - 24 hr 04/19/19 04/19/19 04/19/19 14:51 20:04 23:55 Temperature 98 F 98.0 F 97.8 F Pulse Rate 76 Pulse Rate [ 65 72 Left Brachial] Respiratory 18 17 20 Rate Blood Pressure 127/91 Blood Pressure 120/62 128/84 [Left Arm] O2 Sat by Pulse 100 98 100 Oximetry (%) GENERAL: Awake, alert, and fully oriented, in no acute distress. HEAD: Normal with no signs of trauma. EYES: Pupils equal, round and reactive to light, extraocular movements intact, sclera anicteric, conjunctiva clear. No lid lag. EARS, NOSE, THROAT: Ears normal, nares patent, oropharynx clear without exudates. Moist mucous membranes. NECK: Normal range of motion, supple without lymphadenopathy, JVD, or masses. LUNGS: Breath sounds equal, clear to auscultation bilaterally. No wheezes, and no crackles. No accessory muscle use. HEART: Regular rate and rhythm, normal S1 and S2 without murmur, rub or gallop. ABDOMEN: Soft, nontender, not distended, normoactive bowel sounds, no guarding, no rebound, no masses. No hepatomegaly or splenomegaly. MUSCULOSKELETAL: Normal range of motion at all joints. No bony deformities or tenderness. No CVA tenderness. UPPER EXTREMITIES: 2+ pulses, warm, well-perfused. No cyanosis. No clubbing. No peripheral edema. LOWER EXTREMITIES: 2+ pulses, warm, well-perfused. No calf tenderness. No peripheral edema. NEUROLOGICAL: Cranial nerves II-XII intact. Normal speech. Normal gait. PSYCHIATRIC: Cooperative. Good eye contact. Appropriate mood and affect. SKIN: Warm, dry, normal turgor, no rashes or lesions noted, normal capillary refill. Laboratory Results - last 24 hr 04/19/19 04/19/19 04/19/19 17:00 17:00 17:00 WBC 6.7 RBC 4.24 Hgb 13.5 Hct 40.1 MCV 94.6 MCH 31.7 MCHC 33.5 RDW 13.1 Plt Count 314 MPV 9.3 Absolute Neuts (auto) 4.4 Neutrophils % 66.3 Lymphocytes % 25.5 Monocytes % 7.8 Eosinophils % 0.2 Basophils % 0.2 Nucleated RBC % 0 PT with INR INR PTT (Actin FS) Sodium 140 Potassium 3.4 L Chloride 108 H Carbon Dioxide 25 Anion Gap 7 L BUN 13.8 Creatinine 0.8 Est GFR (CKD-EPI)AfAm 106.13 Est GFR (CKD-EPI)NonAf 91.57 Random Glucose 88 Calcium 9.4 Total Bilirubin 0.4 AST 13 L ALT 19 Alkaline Phosphatase 61 Creatine Kinase 99 Troponin I < 0.02 Total Protein 7.3 Albumin 4.0 Serum , Qual 04/19/19 04/20/19 17:00 02:49 WBC RBC Hgb Hct MCV MCH MCHC RDW Plt Count MPV Absolute Neuts (auto) Neutrophils % Lymphocytes % Monocytes % Eosinophils % Basophils % Nucleated RBC % PT with INR 12.10 INR 1.03 PTT (Actin FS) 32.8 Sodium Potassium Chloride Carbon Dioxide Anion Gap BUN Creatinine Est GFR (CKD-EPI)AfAm Est GFR (CKD-EPI)NonAf Random Glucose Calcium Total Bilirubin AST ALT Alkaline Phosphatase Creatine Kinase Troponin I Total Protein Albumin Serum , Qual Negative ASSESSMENT/PLAN: Visit type - Emergency Visit Emergency Visit: Yes ED Registration Date: 04/19/19 Care time: The patient presented to the Emergency Department on the above date and was hospitalized for further evaluation of their emergent condition. - New Patient This patient is new to me today: Yes Date on this admission: 04/20/19 - Critical Care Critical Care patient: No ATTENDING PHYSICIAN STATEMENT I saw and evaluated the patient. I reviewed the resident's note and discussed the case with the resident. I agree with the resident's findings and plan as documented. SUBJECTIVE: 43 years old female with PMH of lumbar disc herniation s/p laminectomy and fusion presented to ED after near syncopal event and fall. she was shopping at shopping mall and while climbing stairs she started feeling dizzy and lightheaded. She was about to pass out. She fell on his left side of the body without hitting head. She denies palpitation, chest pain, SOB , nausea, vomiting, fever. After that she had severe back pain. OBJECTIVE: Last Vital Signs Temp Pulse Resp BP Pulse Ox 97.8 F 72 20 128/84 100 04/19/19 23:55 04/19/19 23:55 04/19/19 23:55 04/19/19 23:55 04/19/19 23:55 GENERAL: Normal built NAD Head : NC/ AT eyes : KAMILAH, EOMI, no conjctival pallor LUNGS: b/l clear HEART:RRR, normal S1 and S2 without murmur, rub or gallop. ABDOMEN: Soft, nontender, not distended, EXTREMITIES: No edema , peripheral Pulses + NEUROLOGICAL: A&o x3, sensation intact throughout, b/l LE weakness 4/5 Back -tender to palpation on lumbo- sacral region and left paraspinal tenderness SKIN: Warm, dry, normal turgor. ASSESSMENT AND PLAN: S/p fall mechanical vs pre syncopal Near syncope r/o cardiac arrhythmias Acute lower back pain after fall associated with b/l LE weakness unable to ambulate Hypokalemia Admit to tele trend 1 more troponin ECHO analgesia for back pain - tylenol [address] lumbar spine K replaced. follow repeat in AM DVt ppx - lovenox Discussed with resident staff.
[2019-04-20] MEDS ORDERED: ACETAMINOPHEN WITH CODEINE 300MG/30MG TABLET ONE (02:40)
[2019-04-20 06:08] LABS: BASO % 0.4 % (0-2.0); EOS % 0.6 % (0-4.5); HEMATOCRIT 37.1 % (32.4-45.2); HEMOGLOBIN 12.6 GM/dL (10.7-15.3); LYMPH % 30.9 % (8-40); MCH 31.8 pg (25.7-33.7); MCHC 33.8 g/dl (32.0-36.0); NEUT % 58.1 % (42.8-82.8); PLATELET COUNT 269 K/MM3 (134-434); RBC 3.95 M/mm3 (3.60-5.2); RDW 13.2 % (11.6-15.6); WHITE BLOOD COUNT 4.9 K/mm3 (4.0-10.0)
[2019-04-20 06:42] LABS: ALBUMIN 3.4 g/dl (3.4-5.0); BILIRUBIN,TOTAL 0.6 mg/dL (0.2-1); BLOOD UREA NITROGEN 15.2 mg/dL (7-18); CREATININE 0.8 mg/dL (0.55-1.3); POTASSIUM 4.4 mmol/L (3.5-5.1); TOT PROT 6.7 g/dl (6.4-8.2)
[2019-04-20] MEDS ORDERED: ACETAMINOPHEN INJECTION 100 ML IVPB ONE (08:31)
[2019-04-20] MEDS ORDERED: LIDOCAINE 5% TOPICAL PATCH ONE (08:32)
[2019-04-20] MEDS: ACETAMINOPHEN 1000 MG/100 ML VIAL (NON FORMULARY) IVPB PRN ×3 (08:49→22:32)
[2019-04-20] MEDS: LIDOCAINE 5% TOPICAL PATCH TP SCH (09:00)
[2019-04-20] MEDS ORDERED: ENOXAPARIN NA (PORCINE) 40 MG/0.4 ML DISP.SYRIN SQ ONE (09:37)
[2019-04-20] MEDS: ENOXAPARIN NA (PORCINE) 40 MG/0.4 ML DISP.SYRIN SQ SCH (09:41)
--- NOTE | 2019-04-20 09:57 | EKG ---
Test Reason : Blood Pressure : / mmHG Vent. Rate : 069 BPM Atrial Rate : 069 BPM P-R Int : 174 ms QRS Dur : 082 ms QT Int : 436 ms P-R-T Axes : 071 063 046 degrees QTc Int : 467 ms NORMAL SINUS RHYTHM POSSIBLE LEFT ATRIAL ENLARGEMENT BORDERLINE ECG WHEN COMPARED WITH ECG OF 19-APR-2019 17:27, NO SIGNIFICANT CHANGE WAS FOUND Confirmed by Gal Kerr ([id number]) on 04/20/2019 9:57:11 AM Referred By: Confirmed By:Gal Kerr
--- NOTE | 2019-04-20 10:02 | EKG ---
Test Reason : Blood Pressure : / mmHG Vent. Rate : 067 BPM Atrial Rate : 067 BPM P-R Int : 196 ms QRS Dur : 082 ms QT Int : 434 ms P-R-T Axes : 064 058 045 degrees QTc Int : 458 ms NORMAL SINUS RHYTHM POSSIBLE LEFT ATRIAL ENLARGEMENT BORDERLINE ECG NO PREVIOUS ECGS AVAILABLE Confirmed by Gal Kerr ([id number]) on 04/20/2019 10:02:29 AM Referred By: Confirmed By:Gal Kerr
[2019-04-20] MEDS ORDERED: SODIUM CHLORIDE 0.9% 500 ML INFUS.BAG IV ONE (10:41)
--- NOTE | 2019-04-20 11:47 | PN ---
Physical Exam: SUBJECTIVE: Patient seen and examined at bed side , reports tenderness all over , she reports she fell down in [place] while she was on electric stairs , she reports light headedness before she fell , had similar episode in the past. will monitor in tele and follow up echo and orthostatic BP. OBJECTIVE: Vital Signs Period Temp Pulse Resp BP Sys/West Pulse Ox Last 24 Hr 97.7 F-98.2 F 60-76 17-20 105-128/62-91 97-100 GENERAL: AAOx3 in NAD HEAD: NC/AT EYES: PERRL, extraocular movements intact, sclera anicteric, ENT: moist mucous membranes. NECK: full range of motion, supple. LUNGS: Breath sounds equal, clear to auscultation bilaterally, no wheezes, no crackles, no accessory muscle use. HEART: Regular rate and rhythm, S1, S2 without murmur, rub or gallop. ABDOMEN: Soft, nontender, nondistended, normoactive bowel sounds, no guarding, no rebound, no hepatosplenomegaly, no masses. EXTREMITIES: 2+ pulses, warm, well-perfused, no edema. NEUROLOGICAL: no focal deficit , move all ext . Normal speech, gait not observed. strengty 5/5 upper and lower ext PSYCH: Normal mood, normal affect. SKIN: Warm, dry, normal turgor, Laboratory Results - last 24 hr 04/19/19 04/19/19 04/19/19 17:00 17:00 17:00 WBC 6.7 RBC 4.24 Hgb 13.5 Hct 40.1 MCV 94.6 MCH 31.7 MCHC 33.5 RDW 13.1 Plt Count 314 MPV 9.3 Absolute Neuts (auto) 4.4 Neutrophils % 66.3 Lymphocytes % 25.5 Monocytes % 7.8 Eosinophils % 0.2 Basophils % 0.2 Nucleated RBC % 0 PT with INR INR PTT (Actin FS) Sodium 140 Potassium 3.4 L Chloride 108 H Carbon Dioxide 25 Anion Gap 7 L BUN 13.8 Creatinine 0.8 Est GFR (CKD-EPI)AfAm 106.13 Est GFR (CKD-EPI)NonAf 91.57 Random Glucose 88 Calcium 9.4 Total Bilirubin 0.4 AST 13 L ALT 19 Alkaline Phosphatase 61 Creatine Kinase 99 Troponin I < 0.02 Total Protein 7.3 Albumin 4.0 TSH Serum , Qual 04/19/19 04/20/19 04/20/19 17:00 02:49 05:20 WBC 4.9 RBC 3.95 Hgb 12.6 Hct 37.1 MCV 94.0 MCH 31.8 MCHC 33.8 RDW 13.2 Plt Count 269 MPV 9.0 Absolute Neuts (auto) 2.8 Neutrophils % 58.1 Lymphocytes % 30.9 D Monocytes % 10.0 Eosinophils % 0.6 D Basophils % 0.4 Nucleated RBC % 0 PT with INR 12.10 INR 1.03 PTT (Actin FS) 32.8 Sodium Potassium Chloride Carbon Dioxide Anion Gap BUN Creatinine Est GFR (CKD-EPI)AfAm Est GFR (CKD-EPI)NonAf Random Glucose Calcium Total Bilirubin AST ALT Alkaline Phosphatase Creatine Kinase Troponin I Total Protein Albumin TSH Serum , Qual Negative 04/20/19 05:20 WBC RBC Hgb Hct MCV MCH MCHC RDW Plt Count MPV Absolute Neuts (auto) Neutrophils % Lymphocytes % Monocytes % Eosinophils % Basophils % Nucleated RBC % PT with INR INR PTT (Actin FS) Sodium 141 Potassium 4.4 Chloride 112 H Carbon Dioxide 26 Anion Gap 3 L BUN 15.2 Creatinine 0.8 Est GFR (CKD-EPI)AfAm 106.13 Est GFR (CKD-EPI)NonAf 91.57 Random Glucose 90 Calcium 9.0 Total Bilirubin 0.6 AST 10 L ALT 17 Alkaline Phosphatase 51 Creatine Kinase Troponin I Total Protein 6.7 Albumin 3.4 TSH 1.83 Serum , Qual Active Medications Generic Name Dose Route Start Last Admin Trade Name Freq PRN Reason Stop Dose Admin Acetaminophen 1,000 mg 04/20/19 06:00 04/20/19 08:49 Ofirmev Injection - IVPB 1,000 mg Q6H PRN Administration PAIN LEVEL 4 - 6 Enoxaparin Sodium 40 mg 04/20/19 10:00 04/20/19 09:41 Lovenox - SQ 40 mg DAILY BROCK Administration Lidocaine 1 patch 04/20/19 10:00 04/20/19 09:00 Lidoderm Patch - TP 1 patch DAILY BROCK Administration Miscellaneous 1 each 04/20/19 22:00 Lidoderm Patch Removal MC DAILY@2200 BROCK CBC, BMP 04/20/19 05:20 04/20/19 05:20 ASSESSMENT/PLAN: 43 F PMH lumbar disc herniation s/p laminectomy and fusion who presents today with possible syncopal fall. # Fall- mechanical vs syncopal in nature vs orthostatics * Patient was able to recall events of fall, however describes symptoms related to a possible syncope event- confusion, palpitations, shortness of breath. Fall may likely be mechanical as loss of conciousness was denied * Currently vitals wnl * Cardiac monitoring * Echo * EKG NSR # Acute lower back pain # Lower extremity weakness * Patient has b/l weakness and is unable to walk * Lumbar x-ray negative, head ct negative * Lumbar spine CT reflext post Op L3- L4 surgery with no acute changes * Physical therapy ordered * pain control # FEN F: NS @ 125 and 1 L bolus E: Monitor electrolytes N: Regular diet #DVT: Lovenox SQ BID #Dispo: Admitted to telemetry Visit type - Emergency Visit Emergency Visit: Yes ED Registration Date: 04/19/19 Care time: The patient presented to the Emergency Department on the above date and was hospitalized for further evaluation of their emergent condition. - New Patient This patient is new to me today: Yes Date on this admission: 04/20/19 - Critical Care Critical Care patient: No - Discharge Referral Referred to [facility] Med P.C.: No ATTENDING PHYSICIAN STATEMENT I saw and evaluated the patient. I reviewed the resident's note and discussed the case with the resident. I agree with the resident's findings and plan as documented. SUBJECTIVE: OBJECTIVE: ASSESSMENT AND PLAN:
[2019-04-20] MEDS: SODIUM CHLORIDE 1,000 ML IV SCH ×2 (12:00→22:32)
--- NOTE | 2019-04-20 14:57 | ECHO ---
Name: REBECA LAMBERT Exam:Adult Echocardiogram Study Date: 04/20/2019 01:52 PM Age: 43 yrs Reason For Study: near Syncopal Event Height: 67 in Weight: 180 lb BSA: 1.9 m2 MMode/2D Measurements & Calculations IVSd: 0.90 cm Ao root diam: 2.8 cm LVIDd: 3.8 cm LA dimension: 2.6 cm LVIDs: 2.5 cm ACS: 1.9 cm LVPWd: 0.70 cm EDV(Teich): 60.6 ml LVOT diam: 1.9 cm ESV(Teich): 21.6 ml RV S Cruzito: 15.0 cm/sec Doppler Measurements & Calculations MV E max cruzito: 73.1 cm/sec Ao V2 max: 119.4 cm/sec MV A max cruzito: 64.7 cm/sec Ao max P.7 mmHg MV E/A: 1.1 Ao V2 mean: 84.5 cm/sec MV dec time: 0.17 sec Ao mean P.2 mmHg Ao V2 VTI: 28.0 cm ARBEN(I,D): 2.2 cm2 ARBEN(V,D): 2.3 cm2 LV V1 max P.6 mmHg SV(LVOT): 60.9 ml LV V1 mean P.9 mmHg LV V1 max: 94.3 cm/sec LV V1 mean: 63.8 cm/sec LV V1 VTI: 20.9 cm TR max cruzito: 195.5 cm/sec PA V2 max: 63.7 cm/sec TR max P.3 mmHg PA max P.6 mmHg Med Peak E' Cruzito: 12.2 cm/sec Med E/e': 6.0 Lat Peak E' Cruzito: 12.2 cm/sec Lat E/e': 6.0 Procedure Study Quality: Fair. Left Ventricle The left ventricular size, thickness and function are normal. Ejection Fraction = 55-60%. Left Ventri cular Filling pattern is normal for age. The left ventricular wall motion is normal. Right Ventricle The right ventricle is normal in size and function. Atria Normal left and right atrial size and function. Mitral Valve The mitral valve leaflets appear normal. There is no evidence of stenosis, fluttering, or prolapse. T here is no mitral regurgitation noted. Tricuspid Valve The tricuspid valve is normal. There is Trace to mild tricuspid regurgitation. Aortic Valve The aortic valve is trileaflet. The aortic valve is normal in structure and function. Pulmonic Valve The pulmonic valve is not well seen, but is grossly normal. Great Vessels The aortic root is normal size. Pericardium/Pleura There is no pericardial effusion. Interpretation Summary LV: Normal size and function: EF 55-60% RV: normal No significant valvular dysfunction. Gal Kerr 04/20/2019 02:57 PM
--- NOTE | 2019-04-20 15:16 | PN ---
Teaching Attending Note Name of Resident: Jose Callahan ATTENDING PHYSICIAN STATEMENT I saw and evaluated the patient. I reviewed the resident's note and discussed the case with the resident. I agree with the resident's findings and plan as documented. SUBJECTIVE: patient seen and exmained at bedside. Endorses LLE pain, fall likely mechanical v.s. vasovagal due to LLE pain. VS otherwise stable. OBJECTIVE: GA comfortable, NAD, AAox3, slightly anxious HEENT NC/AT, EOMI, neck supple, thyroid not palpable Chest CTAB, no crackles or hweezing CVS S1, S2+, RRR, no m/r/g Abd Soft, NT, ND, BS+, no guarding Ext no LE edema, limited LLE passive ROM due to subjective pain, sensation intact LE b/l, good ROM of RLE Psych mood OK, AAox3, answers to questions Vital Signs - 24 hr 04/19/19 04/19/19 04/20/19 20:04 23:55 07:15 Temperature 98.0 F 97.8 F Pulse Rate Pulse Rate [ 65 72 Left Brachial] Pulse Rate [ Right side Sitting] Pulse Rate [ Right side Supine] Respiratory 17 20 18 Rate Blood Pressure Blood Pressure 120/62 128/84 [Left Arm] Blood Pressure [Right side Sitting] Blood Pressure [Right side Supine] O2 Sat by Pulse 98 100 98 Oximetry (%) 04/20/19 04/20/19 04/20/19 07:23 07:48 10:29 Temperature 97.7 F 98.2 F Pulse Rate Pulse Rate [ 60 64 65 Left Brachial] Pulse Rate [ Right side Sitting] Pulse Rate [ Right side Supine] Respiratory 18 20 17 Rate Blood Pressure Blood Pressure 105/62 109/63 116/79 [Left Arm] Blood Pressure [Right side Sitting] Blood Pressure [Right side Supine] O2 Sat by Pulse 99 98 97 Oximetry (%) 04/20/19 04/20/19 04/20/19 13:51 13:53 15:12 Temperature 98.4 F 98.4 F Pulse Rate 66 Pulse Rate [ 87 Left Brachial] Pulse Rate [ 87 Right side Sitting] Pulse Rate [ 90 Right side Supine] Respiratory 18 19 Rate Blood Pressure 140/52 L Blood Pressure 127/77 [Left Arm] Blood Pressure 127/77 [Right side Sitting] Blood Pressure 119/71 [Right side Supine] O2 Sat by Pulse 97 Oximetry (%) Laboratory Results - last 24 hr 04/19/19 04/19/19 04/19/19 17:00 17:00 17:00 WBC 6.7 RBC 4.24 Hgb 13.5 Hct 40.1 MCV 94.6 MCH 31.7 MCHC 33.5 RDW 13.1 Plt Count 314 MPV 9.3 Absolute Neuts (auto) 4.4 Neutrophils % 66.3 Lymphocytes % 25.5 Monocytes % 7.8 Eosinophils % 0.2 Basophils % 0.2 Nucleated RBC % 0 PT with INR INR PTT (Actin FS) Sodium 140 Potassium 3.4 L Chloride 108 H Carbon Dioxide 25 Anion Gap 7 L BUN 13.8 Creatinine 0.8 Est GFR (CKD-EPI)AfAm 106.13 Est GFR (CKD-EPI)NonAf 91.57 Random Glucose 88 Calcium 9.4 Total Bilirubin 0.4 AST 13 L ALT 19 Alkaline Phosphatase 61 Creatine Kinase 99 Troponin I < 0.02 Total Protein 7.3 Albumin 4.0 TSH Serum , Qual 04/19/19 04/20/19 04/20/19 17:00 02:49 05:20 WBC 4.9 RBC 3.95 Hgb 12.6 Hct 37.1 MCV 94.0 MCH 31.8 MCHC 33.8 RDW 13.2 Plt Count 269 MPV 9.0 Absolute Neuts (auto) 2.8 Neutrophils % 58.1 Lymphocytes % 30.9 D Monocytes % 10.0 Eosinophils % 0.6 D Basophils % 0.4 Nucleated RBC % 0 PT with INR 12.10 INR 1.03 PTT (Actin FS) 32.8 Sodium Potassium Chloride Carbon Dioxide Anion Gap BUN Creatinine Est GFR (CKD-EPI)AfAm Est GFR (CKD-EPI)NonAf Random Glucose Calcium Total Bilirubin AST ALT Alkaline Phosphatase Creatine Kinase Troponin I Total Protein Albumin TSH Serum , Qual Negative 04/20/19 05:20 WBC RBC Hgb Hct MCV MCH MCHC RDW Plt Count MPV Absolute Neuts (auto) Neutrophils % Lymphocytes % Monocytes % Eosinophils % Basophils % Nucleated RBC % PT with INR INR PTT (Actin FS) Sodium 141 Potassium 4.4 Chloride 112 H Carbon Dioxide 26 Anion Gap 3 L BUN 15.2 Creatinine 0.8 Est GFR (CKD-EPI)AfAm 106.13 Est GFR (CKD-EPI)NonAf 91.57 Random Glucose 90 Calcium 9.0 Total Bilirubin 0.6 AST 10 L ALT 17 Alkaline Phosphatase 51 Creatine Kinase Troponin I Total Protein 6.7 Albumin 3.4 TSH 1.83 Serum , Qual Home Medications Medication Instructions Recorded traZODone HCL [Trazodone HCl] 100 mg PO PRN PRN 07/21/18 Gabapentin [Neurontin] 300 mg PO BID 11/04/18 Oxycodone HCl/Acetaminophen 1 each PO PRN PRN 11/12/18 [Oxycodone-Acetaminophen 5-325] Docusate Sodium [Colace -] 100 mg PO TID #90 capsule 11/17/18 Ferrous Sulfate [Feosol] 325 mg PO DAILY #30 ud 11/17/18 Folic Acid - 1 mg PO DAILY #30 tablet 11/17/18 traMADol HCL [Ultram -] 50 mg PO Q8H PRN #15 tablet MDD 4 11/17/18 Amitriptyline HCl [Elavil -] 50 mg PO HS 04/19/19 Current Medications Generic Name Dose Route Start Last Admin Trade Name Gretchen PRN Reason Stop Dose Admin Acetaminophen 1,000 mg 04/20/19 06:00 04/20/19 08:49 Ofirmev Injection - IVPB 1,000 mg Q6H PRN Administration PAIN LEVEL 4 - 6 Enoxaparin Sodium 40 mg 04/20/19 10:00 04/20/19 09:41 Lovenox - SQ 40 mg DAILY BROCK Administration Sodium Chloride 1,000 mls @ 125 mls/hr 04/20/19 12:00 04/20/19 12:00 Normal Saline - IV 125 mls/hr ASDIR BROCK Administration Lidocaine 1 patch 04/20/19 10:00 04/20/19 09:00 Lidoderm Patch - TP 1 patch DAILY BROCK Administration Miscellaneous 1 each 04/20/19 22:00 Lidoderm Patch Removal MC DAILY@2200 [facility] ASSESSMENT AND PLAN: Fall, likely mechanical v.s. vasovagal due to subjective pain, seems to be part of an anxiety/depression component. cardiac workup thus far unremarkable, EKG WNL, trops neg., Echo WNL IV hydration, tele monitoring, reassurance, pain control for chronic lumbago Acute on chronic LBP imaging and exam unremarkable, no loss of bowel/bladder control, exhibiting good strength LE b/l possible anxiety/depression component which may cause her pain to worsen restart antidepressants, pain meds, reassurance DVT ppx: Lovenox SC Tele monitoring PT evaluation 24 hour DC notice
[2019-04-20 15:56] VITALS: BMI 29.5
[2019-04-20] MEDS: LIDOCAINE PATCH REMOVAL MC SCH (23:18)
[2019-04-21] MEDS: SODIUM CHLORIDE 1,000 ML IV SCH (06:22)
--- NOTE | 2019-04-21 07:29 | PN ---
Physical Exam: SUBJECTIVE: Patient seen and examined at bed side , still with pain in lower backl and tearing m, refuse to walk , pain mangement consulted Ct lumbat without contrastper neurosurgery possible dc in am if no changes on CT OBJECTIVE: Vital Signs Period Temp Pulse Resp BP Sys/West Pulse Ox Last 24 Hr 97.7 F-98.6 F 56-90 16-20 109-140/52-84 97-98 GENERAL: AAOx3 in NAD HEAD: NC/AT EYES: PERRL, extraocular movements intact, sclera anicteric, ENT: moist mucous membranes. NECK: full range of motion, supple. LUNGS: Breath sounds equal, clear to auscultation bilaterally, no wheezes, no crackles, no accessory muscle use. HEART: Regular rate and rhythm, S1, S2 without murmur, rub or gallop. ABDOMEN: Soft, nontender, nondistended, normoactive bowel sounds, no guarding, no rebound, no hepatosplenomegaly, no masses. EXTREMITIES: 2+ pulses, warm, well-perfused, no edema. NEUROLOGICAL: no focal deficit , move all ext . Normal speech, gait not observed. strengty 5/5 upper and lower ext PSYCH: Normal mood, normal affect. SKIN: Warm, dry, normal turgor, Active Medications Generic Name Dose Route Start Last Admin Trade Name Rodnyeq PRN Reason Stop Dose Admin Acetaminophen 1,000 mg 04/20/19 06:00 04/20/19 22:32 Ofirmev Injection - IVPB 1,000 mg Q6H PRN Administration PAIN LEVEL 4 - 6 Enoxaparin Sodium 40 mg 04/20/19 10:00 04/20/19 09:41 Lovenox - SQ 40 mg DAILY BROCK Administration Sodium Chloride 1,000 mls @ 125 mls/hr 04/20/19 12:00 04/21/19 06:22 Normal Saline - IV 125 mls/hr ASDIR BROCK Administration Lidocaine 1 patch 04/20/19 10:00 04/20/19 09:00 Lidoderm Patch - TP 1 patch DAILY BROCK Administration Miscellaneous 1 each 04/20/19 22:00 04/20/19 23:18 Lidoderm Patch Removal MC Not Given DAILY@2200 [facility] ASSESSMENT/PLAN: 43 F PMH lumbar disc herniation s/p laminectomy and fusion who presents today with possible syncopal fall. # Fall- mechanical vs syncopal in nature vs orthostatics * Patient was able to recall events of fall, however describes symptoms related to a possible syncope event- confusion, palpitations, shortness of breath. Fall may likely be mechanical as loss of conciousness was denied * Currently vitals wnl * Cardiac monitoring * Echo * EKG NSR # Acute lower back pain # Lower extremity weakness * Patient has b/l weakness and is unable to walk * Lumbar x-ray negative, head ct negative * Lumbar spine CT reflext post Op L3- L4 surgery with no acute changes * Physical therapy ordered * pain control # FEN F: dc fluids E: Monitor electrolytes N: Regular diet #DVT: Lovenox SQ BID #Dispo: Admitted to telemetry Visit type - Emergency Visit Emergency Visit: Yes ED Registration Date: 04/19/19 Care time: The patient presented to the Emergency Department on the above date and was hospitalized for further evaluation of their emergent condition. - New Patient This patient is new to me today: No - Critical Care Critical Care patient: No - Discharge Referral Referred to [facility] Med [facility].C[facility] No ATTENDING PHYSICIAN STATEMENT I saw and evaluated the patient. I reviewed the resident's note and discussed the case with the resident. I agree with the resident's findings and plan as documented. SUBJECTIVE: OBJECTIVE: ASSESSMENT AND PLAN:
--- NOTE | 2019-04-21 08:12 | PN ---
Teaching Attending Note Name of Resident: Jose Callahan ATTENDING PHYSICIAN STATEMENT I saw and evaluated the patient. I reviewed the resident's note and discussed the case with the resident. I agree with the resident's findings and plan as documented. SUBJECTIVE: No complaint of dizziness, complaint of worsening back pain OBJECTIVE: Vital Signs Temperature 98.1 F 04/21/19 06:00 Pulse Rate 75 04/21/19 06:00 Respiratory Rate 16 04/21/19 06:00 Blood Pressure 129/78 04/21/19 06:00 O2 Sat by Pulse Oximetry (%) 97 04/20/19 21:00 General: Young male, comfortable, not in distress HEENT; mucous membranes moist, no anemia, no jaundice, PERRLA, no nystagmus Neck: No JVD, supple, no bruit, thyroid palpably normal, normal carotid pulsations. Chest: Nontender, clear to auscultation bilaterally/bilateral wheezing/ bilateral basal rales. CVS: S1-S2 regular no murmur/gallop/rub Abdomen: Nondistended, soft, bowel sounds present. 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 present [employer] CHIE[employer]: AO X3 , no gross motor sensory deficit Active Medications Active Medications Acetaminophen (Tylenol -) 325 mg PO Q6H PRN PRN Reason: PAIN LEVEL 4 - 6 Amitriptyline HCl (Elavil -) 50 mg PO HS [facility] Docusate Sodium (Colace -) 100 mg PO TID [facility] Last Admin: 04/21/19 13:09 Dose: 100 mg Enoxaparin Sodium (Lovenox -) 40 mg SQ DAILY [facility] Last Admin: 04/21/19 10:28 Dose: 40 mg Gabapentin (Neurontin -) 300 mg PO BID [facility] Last Admin: 04/21/19 10:28 Dose: 300 mg Lidocaine (Lidoderm Patch -) 1 patch TP DAILY [facility] Last Admin: 04/21/19 10:28 Dose: 1 patch Miscellaneous (Lidoderm Patch Removal) 1 each MC DAILY@2200 [facility] Last Admin: 04/20/19 23:18 Dose: Not Given Oxycodone HCl (Roxicodone -) 5 mg PO Q6H PRN PRN Reason: PAIN LEVEL 4 - 6 Pantoprazole Sodium (Protonix -) 40 mg PO DAILY [facility] Last Admin: 04/21/19 10:28 Dose: 40 mg Trazodone HCl (Desyrel -) 100 mg PO HS [facility] ASSESSMENT AND PLAN:43 y/o F with PMH of chronic low back pain s/p L3-4 laminectomies with L3-4 posterior fusion in November 2018, patient has been having poor gait since back surgery presenting to the ED S/P escalator fall. Pt was in [employer] shopping when she fell, hit her head and left side as she was getting on the escalator. Impression: Mechanical fall Problem List - Problems (1) Fall (on) (from) other stairs and steps, initial encounter Assessment/Plan: Most likely mechanical, no loss of consciousness EKG no arrhythmia normal QTC, no complaint of chest pain/shortness of breath or palpitation, no family history of sudden cardiac , PT evaluation, will discuss with operating spine surgery. Problems reviewed: Yes Code(s): W10.8XXA - FALL (ON) (FROM) OTHER STAIRS AND STEPS, INITIAL ENCOUNTER (2) Back pain Assessment/Plan: Patient is chronic back pain presents with worsening based pain after sustaining mechanical fall, will cont current management. Problems reviewed: Yes Code(s): M54.9 - DORSALGIA, UNSPECIFIED Qualifiers: Back pain location: back pain in unspecified location Chronicity: unspecified Back pain laterality: unspecified Qualified Code(s): M54.9 - Dorsalgia, unspecified (3) Depressed Assessment/Plan: Continue all home Problems reviewed: Yes Code(s): F32.9 - MAJOR DEPRESSIVE DISORDER, SINGLE EPISODE, UNSPECIFIED
[2019-04-21 08:19] LABS: BASO % 0.3 % (0-2.0); EOS % 0.7 % (0-4.5); HEMATOCRIT 37.7 % (32.4-45.2); HEMOGLOBIN 12.6 GM/dL (10.7-15.3); LYMPH % 26.7 % (8-40); MCH 31.3 pg (25.7-33.7); MCHC 33.3 g/dl (32.0-36.0); MEAN CELL VOLUME 93.9 fl (80-96); MEAN PLT VOLUME 9.2 fl (7.5-11.1); MONO % 7.9 % (3.8-10.2); NEUT % 64.4 % (42.8-82.8); PLATELET COUNT 298 K/MM3 (134-434); RBC 4.02 M/mm3 (3.60-5.2); RDW 12.7 % (11.6-15.6); WHITE BLOOD COUNT 4.6 K/mm3 (4.0-10.0)
[2019-04-21 08:46] LABS: ALBUMIN 3.3 g/dl (3.4-5.0); BILIRUBIN,TOTAL 0.3 mg/dL (0.2-1); BLOOD UREA NITROGEN 11.7 mg/dL (7-18); CALCIUM 8.7 mg/dL (8.5-10.1); CREATININE 0.8 mg/dL (0.55-1.3); POTASSIUM 4.5 mmol/L (3.5-5.1); TOT PROT 6.5 g/dl (6.4-8.2)
[2019-04-21] MEDS ORDERED: traMADol HCL 50 MG TABLET PO PRN ×2 (08:47→16:49)
[2019-04-21] MEDS ORDERED: traZODone HCL 100 MG TABLET (FP) PO PRN (08:47)
[2019-04-21] MEDS ORDERED: FERROUS SO4 325 MG TABLET (FP) PO SCH (10:00)
[2019-04-21] MEDS ORDERED: FOLIC ACID 1 MG TABLET (FP) PO SCH (10:00)
[2019-04-21] MEDS: ENOXAPARIN NA (PORCINE) 40 MG/0.4 ML DISP.SYRIN SQ SCH (10:28)
[2019-04-21] MEDS: ACETAMINOPHEN 1000 MG/100 ML VIAL (NON FORMULARY) IVPB PRN (10:28)
[2019-04-21] MEDS: GABAPENTIN 300 MG CAPSULE PO SCH ×2 (10:28→20:59)
[2019-04-21] MEDS: PANTOPRAZOLE 40 MG TABLET PO SCH (10:28)
[2019-04-21] MEDS: LIDOCAINE 5% TOPICAL PATCH TP SCH (10:28)
[2019-04-21] MEDS ORDERED: oxyCODONE HCL 5 MG TABLET PO PRN ×2 (11:37→17:37)
[2019-04-21] MEDS ORDERED: ACETAMINOPHEN 325 MG TABLET (FP) PO PRN (11:37)
[2019-04-21] MEDS: DOCUSATE SODIUM 100 MG CAPSULE (FP) PO SCH ×2 (13:09→20:59)
[2019-04-21] MEDS: oxyCODONE HCL 5 MG TABLET PO PRN (15:48)
[2019-04-21] MEDS: AMITRIPTYLINE HCL 25 MG TABLET PO SCH (20:59)
[2019-04-21] MEDS: traZODone HCL 100 MG TABLET (FP) PO SCH (20:59)
[2019-04-21] MEDS: LIDOCAINE PATCH REMOVAL MC SCH (23:00)
[2019-04-22] MEDS: ACETAMINOPHEN 325 MG TABLET (FP) PO PRN ×2 (05:57→15:22)
[2019-04-22] MEDS: oxyCODONE HCL 5 MG TABLET PO PRN ×2 (05:58→15:22)
[2019-04-22] MEDS: DOCUSATE SODIUM 100 MG CAPSULE (FP) PO SCH ×3 (05:58→23:05)
[2019-04-22 08:35] LABS: ALBUMIN 3.3 g/dl (3.4-5.0); BILIRUBIN,TOTAL 0.3 mg/dL (0.2-1); BLOOD UREA NITROGEN 12.1 mg/dL (7-18); CALCIUM 9.1 mg/dL (8.5-10.1); CREATININE 0.8 mg/dL (0.55-1.3); POTASSIUM 3.9 mmol/L (3.5-5.1); TOT PROT 6.3 g/dl (6.4-8.2)
--- NOTE | 2019-04-22 09:54 | PN ---
Teaching Attending Note Name of Resident: Jose Callahan ATTENDING PHYSICIAN STATEMENT I saw and evaluated the patient. I reviewed the resident's note and discussed the case with the resident. I agree with the resident's findings and plan as documented. SUBJECTIVE: Still complaint of back pain able to walk only 5 steps, patient lives in a building and elevated, evaluated by neurosurgery after CT scan that shows normally placed hardware OBJECTIVE: Vital Signs Temperature 98.2 F 04/22/19 06:00 Pulse Rate 84 04/22/19 06:00 Respiratory Rate 18 04/22/19 06:00 Blood Pressure 101/54 L 04/22/19 06:00 O2 Sat by Pulse Oximetry (%) 100 04/21/19 21:00 General: Young male, comfortable, not in distress HEENT; mucous membranes moist, no anemia, no jaundice, PERRLA, no nystagmus Neck: No JVD, supple, no bruit, thyroid palpably normal, normal carotid pulsations. Chest: Nontender, clear to auscultation bilaterally/bilateral wheezing/ bilateral basal rales. CVS: S1-S2 regular no murmur/gallop/rub Abdomen: Nondistended, soft, bowel sounds present. 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 Pt was in [employer] shopping when she fell, hit her head and left side as she was getting on the escalator. Patient has normal EKG QTC 458, normal echocardiogram , normal imaging including CT lumbar spine, evaluated by neuro spine surgery cleared to DC; Plan: PT evaluation, unlikely cardiac syncope, syncope work-up negative, if patient is unable to walk can be discharged home with PT or subacute rehabilitation Impression: Mechanical fall Problem List - Problems (1) Fall (on) (from) other stairs and steps, initial encounter Assessment/Plan: Most likely mechanical, no loss of consciousness EKG no arrhythmia normal QTC, no complaint of chest pain/shortness of breath or palpitation, no family history of sudden cardiac , PT evaluation, repeat CT spine shows no fracture, hardware is at place, cleared by neurosurgery, optimize pain control add on Flexeril consider home PT/subacute rehab as per PT evaluation. Code(s): W10.8XXA - FALL (ON) (FROM) OTHER STAIRS AND STEPS, INITIAL ENCOUNTER (2) Back pain Assessment/Plan: Patient is chronic back pain presents with worsening based pain after sustaining mechanical fall, complained of pain despite resuming all home medication we will add Flexeril, patient has follow-up with pain management clinic Dr. Freeman. 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 Problems reviewed: Yes Code(s): R55 - SYNCOPE AND COLLAPSE
[2019-04-22] MEDS: ENOXAPARIN NA (PORCINE) 40 MG/0.4 ML DISP.SYRIN SQ SCH (10:01)
[2019-04-22] MEDS: GABAPENTIN 300 MG CAPSULE PO SCH ×2 (10:01→23:06)
[2019-04-22] MEDS: PANTOPRAZOLE 40 MG TABLET PO SCH (10:01)
[2019-04-22] MEDS: LIDOCAINE 5% TOPICAL PATCH TP SCH (10:01)
--- NOTE | 2019-04-22 12:09 | CONSULT ---
Consult - text type - Consultation Consultation Note: NEUROSURGERY CONSULTATION Patient is known to me from a previous admission. I treated her with L34 discectomy and fusion on November 13, 2018. She had a good recovery from surgery and was doing well and was cleared to return to work when last seen in the office. Patient fell recently which prompted admission for syncope workup. CT Lumbar reviewed and hardware and cage are in good position. Fusion is maturing well for this time interval. Patient is non-focal on exam and complains of headaches as well as difficulty performing her work duties and ascending the five flights of stairs to her home. Understandably, she may require additional time and Physical Therapy while she recovers. Agree with Rehab/subacute rehab once medically clear. I advised the patient to resume use of her Lumbar brace for the time being and will see her in my clinic in one month or sooner if her symptoms progress. No Neurosurgical contraindication to discharge.
[2019-04-22] MEDS: CYCLOBENZAPRINE HCL 5 MG TABLET PO SCH ×2 (13:20→23:11)
--- NOTE | 2019-04-22 16:29 | PN ---
Physical Exam: SUBJECTIVE: Patient seen and examined at bed side , still with pain in lower back and tearing m, pain mangement consulted Ct lumbar without contrast per neurosurgery with no changes dc in am to SNF add cyclobenzaprine muscle relaxant OBJECTIVE: Vital Signs Period Temp Pulse Resp BP Sys/West Pulse Ox Last 24 Hr 97.6 F-98.4 F 54-84 14-18 101-135/54-78 98-100 GENERAL: AAOx3 in NAD HEAD: NC/AT EYES: PERRL, extraocular movements intact, sclera anicteric, ENT: moist mucous membranes. NECK: full range of motion, supple. LUNGS: Breath sounds equal, clear to auscultation bilaterally, no wheezes, no crackles, no accessory muscle use. HEART: Regular rate and rhythm, S1, S2 without murmur, rub or gallop. ABDOMEN: Soft, nontender, nondistended, normoactive bowel sounds, no guarding, no rebound, no hepatosplenomegaly, no masses. EXTREMITIES: 2+ pulses, warm, well-perfused, no edema. NEUROLOGICAL: no focal deficit , move all ext . Normal speech, gait not observed. strengty 5/5 upper and lower ext PSYCH: Normal mood, normal affect. SKIN: Warm, dry, normal turgor, Laboratory Results - last 24 hr 04/22/19 06:48 Sodium 140 Potassium 3.9 Chloride 108 H Carbon Dioxide 27 Anion Gap 6 L BUN 12.1 Creatinine 0.8 Est GFR (CKD-EPI)AfAm 106.13 Est GFR (CKD-EPI)NonAf 91.57 Random Glucose 78 Calcium 9.1 Total Bilirubin 0.3 AST 14 L ALT 22 Alkaline Phosphatase 52 Total Protein 6.3 L Albumin 3.3 L Active Medications Generic Name Dose Route Start Last Admin Trade Name Freq PRN Reason Stop Dose Admin Acetaminophen 325 mg 04/21/19 11:38 04/22/19 15:22 Tylenol - PO 325 mg Q6H PRN Administration PAIN LEVEL 4 - 6 Amitriptyline HCl 50 mg 04/21/19 22:00 04/21/19 20:59 Elavil - PO 50 mg HS BROCK Administration Cyclobenzaprine HCl 5 mg 04/22/19 14:00 04/22/19 13:20 Cyclobenzaprine Hcl PO 5 mg TID BROCK Administration Docusate Sodium 100 mg 04/21/19 14:00 04/22/19 13:20 Colace - PO 100 mg TID BROCK Administration Enoxaparin Sodium 40 mg 04/20/19 10:00 04/22/19 10:01 Lovenox - SQ 40 mg DAILY [facility] Administration Gabapentin 300 mg 04/21/19 10:00 04/22/19 10:01 Neurontin - PO 300 mg BID BROCK Administration Lidocaine 1 patch 04/20/19 10:00 04/22/19 10:01 Lidoderm Patch - TP 1 patch DAILY [facility] Administration Miscellaneous 1 each 04/20/19 22:00 04/21/19 23:00 Lidoderm Patch Removal MC Not Given DAILY@2200 [facility] Oxycodone HCl 5 mg 04/21/19 15:28 04/22/19 15:22 Roxicodone - PO 5 mg Q6H PRN Administration PAIN LEVEL 4 - 6 Pantoprazole Sodium 40 mg 04/21/19 10:00 04/22/19 10:01 Protonix - PO 40 mg DAILY [facility] Administration Tramadol HCl 50 mg 04/21/19 16:49 04/21/19 19:34 Ultram - PO 50 mg Q6H PRN Administration PAIN LEVEL 1-5 Trazodone HCl 100 mg 04/21/19 22:00 04/21/19 20:59 Desyrel - PO 100 mg HS BROCK Administration CBC, BMP 04/21/19 06:10 04/22/19 06:48 ASSESSMENT/PLAN: 43 F PMH lumbar disc herniation s/p laminectomy and fusion who presents today with possible syncopal fall. # Fall- mechanical vs syncopal in nature vs orthostatics * Patient was able to recall events of fall, however describes symptoms related to a possible syncope event- confusion, palpitations, shortness of breath. Fall may likely be mechanical as loss of conciousness was denied * Currently vitals wnl * Cardiac monitoring * Echo * EKG NSR # Acute lower back pain # Lower extremity weakness * Patient has b/l weakness and is unable to walk * Lumbar x-ray negative, head ct negative * Lumbar spine CT reflext post Op L3- L4 surgery with no acute changes * Physical therapy ordered walked 5 steps * pain control # FEN F: dc fluids E: Monitor electrolytes N: Regular diet #DVT: Lovenox SQ BID #Dispo: Admitted to telemetry Dc to SNF in AM Visit type - Emergency Visit Emergency Visit: Yes ED Registration Date: 04/19/19 Care time: The patient presented to the Emergency Department on the above date and was hospitalized for further evaluation of their emergent condition. - New Patient This patient is new to me today: No - Critical Care Critical Care patient: No ATTENDING PHYSICIAN STATEMENT I saw and evaluated the patient. I reviewed the resident's note and discussed the case with the resident. I agree with the resident's findings and plan as documented. SUBJECTIVE: OBJECTIVE: ASSESSMENT AND PLAN:
[2019-04-22] MEDS ORDERED: PT OWN MED DRAWER 7, Y5N ONE (23:01)
[2019-04-22] MEDS: SENNOSIDES 8.6MG TABLET (FP) PO SCH (23:06)
[2019-04-22] MEDS: AMITRIPTYLINE HCL 25 MG TABLET PO SCH (23:06)
[2019-04-22] MEDS: LIDOCAINE PATCH REMOVAL MC SCH (23:07)
[2019-04-22] MEDS: traZODone HCL 100 MG TABLET (FP) PO SCH (23:11)
[2019-04-23] MEDS ORDERED: PT OWN MED DRAWER 7, Y5N ONE ×3 (05:34→21:17)
[2019-04-23] MEDS: DOCUSATE SODIUM 100 MG CAPSULE (FP) PO SCH ×3 (05:42→21:21)
[2019-04-23] MEDS: CYCLOBENZAPRINE HCL 5 MG TABLET PO SCH ×3 (05:43→21:21)
[2019-04-23 06:50] LABS: BLOOD UREA NITROGEN 14.7 mg/dL (7-18); CALCIUM 9.1 mg/dL (8.5-10.1); CREATININE 0.9 mg/dL (0.55-1.3); POTASSIUM 4.2 mmol/L (3.5-5.1)
[2019-04-23] MEDS: GABAPENTIN 300 MG CAPSULE PO SCH ×2 (09:00→21:20)
[2019-04-23] MEDS: LIDOCAINE 5% TOPICAL PATCH TP SCH (09:00)
[2019-04-23] MEDS: ENOXAPARIN NA (PORCINE) 40 MG/0.4 ML DISP.SYRIN SQ SCH (09:00)
[2019-04-23] MEDS: PANTOPRAZOLE 40 MG TABLET PO SCH (09:00)
--- NOTE | 2019-04-23 09:36 | PN ---
Teaching Attending Note Name of Resident: Jose Callahan ATTENDING PHYSICIAN STATEMENT I saw and evaluated the patient. I reviewed the resident's note and discussed the case with the resident. I agree with the resident's findings and plan as documented. SUBJECTIVE: He still complained of pain after eating approval for subacute rehab OBJECTIVE: Vital Signs Temperature 97.7 F 04/23/19 06:00 Pulse Rate 54 L 04/23/19 06:00 Respiratory Rate 16 04/23/19 06:00 Blood Pressure 109/62 04/23/19 06:00 O2 Sat by Pulse Oximetry (%) 94 L 04/22/19 21:00 General: Young male, comfortable, not in distress HEENT; mucous membranes moist, no anemia, no jaundice, PERRLA, no nystagmus Neck: No JVD, supple, no bruit, thyroid palpably normal, normal carotid pulsations. Chest: Nontender, clear to auscultation bilaterally/bilateral wheezing/ bilateral basal rales. CVS: S1-S2 regular no murmur/gallop/rub Abdomen: Nondistended, soft, bowel sounds present. 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 , no gross motor sensory deficit 04/21/19 06:10 04/23/19 05:35 ECHO: Normal CT Lumbar spine: Post OP changes no acute changes Active Medications Acetaminophen (Tylenol -) 325 mg PO Q6H PRN PRN Reason: PAIN LEVEL 4 - 6 Last Admin: 04/22/19 15:22 Dose: 325 mg Amitriptyline HCl (Elavil -) 50 mg PO HS [facility] Last Admin: 04/22/19 23:06 Dose: 50 mg Cyclobenzaprine HCl (Cyclobenzaprine Hcl) 5 mg PO TID [facility] Last Admin: 04/23/19 05:43 Dose: 5 mg Docusate Sodium (Colace -) 100 mg PO TID [facility] Last Admin: 04/23/19 05:42 Dose: 100 mg Enoxaparin Sodium (Lovenox -) 40 mg SQ DAILY [facility] Last Admin: 04/23/19 09:00 Dose: 40 mg Gabapentin (Neurontin -) 300 mg PO BID [facility] Last Admin: 04/23/19 09:00 Dose: 300 mg Lidocaine (Lidoderm Patch -) 1 patch TP DAILY [facility] Last Admin: 04/23/19 09:00 Dose: 1 patch Miscellaneous (Lidoderm Patch Removal) 1 each MC DAILY@2200 [facility] Last Admin: 04/22/19 23:07 Dose: 1 each Oxycodone HCl (Roxicodone -) 5 mg PO Q6H PRN PRN Reason: PAIN LEVEL 4 - 6 Last Admin: 04/22/19 15:22 Dose: 5 mg Pantoprazole Sodium (Protonix -) 40 mg PO DAILY [facility] Last Admin: 04/23/19 09:00 Dose: 40 mg Senna (Senna -) 1 tab PO [facility] Last Admin: 04/22/19 23:06 Dose: 1 tab Tramadol HCl (Ultram -) 50 mg PO Q6H PRN PRN Reason: PAIN LEVEL 1-5 Last Admin: 04/21/19 19:34 Dose: 50 mg Trazodone HCl (Desyrel -) 100 mg PO [facility] Last Admin: 04/22/19 23:11 Dose: 100 mg ASSESSMENT AND PLAN: 43y/o F with PMH of chronic low back pain s/p L3-4 laminectomies with L3-4 posterior fusion in November 2018, patient has been having poor gait since back surgery presenting to the ED S/P escalator fall. Pt was in [employer] shopping when she fell, hit her head and left side as she was getting on the escalator. Patient has normal EKG QTC 458, normal echocardiogram , normal imaging including CT lumbar spine, evaluated by neuro spine surgery cleared to DC; Plan: PT evaluation, unlikely cardiac syncope, syncope work-up negative, if patient is unable to walk can be discharged home with PT or subacute rehabilitation Impression: Mechanical fall Worsening back pain Problem List - Problems (1) Fall (on) (from) other stairs and steps, initial encounter Assessment/Plan: Most likely mechanical, no loss of consciousness EKG no arrhythmia normal QTC, no complaint of chest pain/shortness of breath or palpitation, no family history of sudden cardiac , PT evaluation, repeat CT spine shows no fracture, hardware is at place, cleared by neurosurgery, optimize pain control add on Flexeril consider home PT/subacute rehab as per PT evaluation. Code(s): W10.8XXA - FALL (ON) (FROM) OTHER STAIRS AND STEPS, INITIAL ENCOUNTER (2) Back pain Assessment/Plan: Patient is chronic back pain presents with worsening based pain after sustaining mechanical fall, complained of pain despite resuming all home medication we will add Flexeril, patient has follow-up with pain management clinic Dr. Freeman. Code(s): M54.9 - DORSALGIA, UNSPECIFIED Qualifiers: Back pain location: back pain in unspecified location Chronicity: unspecified Back pain laterality: unspecified Qualified Code(s): M54.9 - Dorsalgia, unspecified (3) Depressed Assessment/Plan: Continue all home Code(s): F32.9 - MAJOR DEPRESSIVE DISORDER, SINGLE EPISODE, UNSPECIFIED (4) Pre-syncope Assessment/Plan: Present with questionable presyncope no cardiac history, no family of sudden cardiac , normal EKG, normal echo, no arrhythmia on 24 hours on monitoring engineer considering presentation and negative work-up unlikely cardiac etiology. Code(s): R55 - SYNCOPE AND COLLAPSE
[2019-04-23] MEDS ORDERED: MINERAL OIL ENEMA 133 ML ENEMA PR ONE (14:32)
[2019-04-23] MEDS ORDERED: BISACODYL 10 MG SUPP.RECT PR ONE (14:32)
--- NOTE | 2019-04-23 17:02 | PN ---
Physical Exam: SUBJECTIVE: Patient seen and examined at bed side , pain controlled , Ct lumbar without contrast per neurosurgery with no changes dc in am to SNF pending authorization add cyclobenzaprine muscle relaxant OBJECTIVE: Vital Signs Period Temp Pulse Resp BP Sys/West Pulse Ox Last 24 Hr 97.7 F-98.9 F 54-89 16-18 107-124/58-75 94-94 GENERAL: AAOx3 in NAD HEAD: NC/AT EYES: PERRL, extraocular movements intact, sclera anicteric, ENT: moist mucous membranes. NECK: full range of motion, supple. LUNGS: Breath sounds equal, clear to auscultation bilaterally, no wheezes, no crackles, no accessory muscle use. HEART: Regular rate and rhythm, S1, S2 without murmur, rub or gallop. ABDOMEN: Soft, nontender, nondistended, normoactive bowel sounds, no guarding, no rebound, no hepatosplenomegaly, no masses. EXTREMITIES: 2+ pulses, warm, well-perfused, no edema. NEUROLOGICAL: no focal deficit , move all ext . Normal speech, gait not observed. strengty 5/5 upper and lower ext PSYCH: Normal mood, normal affect. SKIN: Warm, dry, normal turgor, Laboratory Results - last 24 hr 04/23/19 05:35 Sodium 142 Potassium 4.2 Chloride 108 H Carbon Dioxide 29 Anion Gap 4 L BUN 14.7 Creatinine 0.9 Est GFR (CKD-EPI)AfAm 92.05 Est GFR (CKD-EPI)NonAf 79.42 Random Glucose 94 Calcium 9.1 Active Medications Generic Name Dose Route Start Last Admin Trade Name Freq PRN Reason Stop Dose Admin Acetaminophen 325 mg 04/21/19 11:38 04/22/19 15:22 Tylenol - PO 325 mg Q6H PRN Administration PAIN LEVEL 4 - 6 Amitriptyline HCl 50 mg 04/21/19 22:00 04/22/19 23:06 Elavil - PO 50 mg HS [facility] Administration Cyclobenzaprine HCl 5 mg 04/22/19 14:00 04/23/19 14:52 Cyclobenzaprine Hcl PO 5 mg TID [facility] Administration Docusate Sodium 100 mg 04/21/19 14:00 04/23/19 14:52 Colace - PO 100 mg TID [facility] Administration Enoxaparin Sodium 40 mg 04/20/19 10:00 04/23/19 09:00 Lovenox - SQ 40 mg DAILY [facility] Administration Gabapentin 300 mg 04/21/19 10:00 04/23/19 09:00 Neurontin - PO 300 mg BID [facility] Administration Lidocaine 1 patch 04/20/19 10:00 04/23/19 09:00 Lidoderm Patch - TP 1 patch DAILY [facility] Administration Miscellaneous 1 each 04/20/19 22:00 04/22/19 23:07 Lidoderm Patch Removal MC 1 each DAILY@2200 [facility] Administration Oxycodone HCl 5 mg 04/21/19 15:28 04/22/19 15:22 Roxicodone - PO 5 mg Q6H PRN Administration PAIN LEVEL 4 - 6 Pantoprazole Sodium 40 mg 04/21/19 10:00 04/23/19 09:00 Protonix - PO 40 mg DAILY [facility] Administration Polyethylene Glycol 17 gm 04/23/19 22:00 Miralax (For Daily Use) - PO BID [facility] Senna 1 tab 04/22/19 22:00 04/22/19 23:06 Senna - PO 1 tab HS [facility] Administration Tramadol HCl 50 mg 04/21/19 16:49 04/21/19 19:34 Ultram - PO 50 mg Q6H PRN Administration PAIN LEVEL 1-5 Trazodone HCl 100 mg 04/21/19 22:00 04/22/19 23:11 Desyrel - PO 100 mg HS [facility] Administration CBC, BMP 04/21/19 06:10 04/23/19 05:35 ASSESSMENT/PLAN: 43 F PMH lumbar disc herniation s/p laminectomy and fusion who presents today with possible syncopal fall. # Fall- mechanical vs syncopal in nature vs orthostatics * Patient was able to recall events of fall, however describes symptoms related to a possible syncope event- confusion, palpitations, shortness of breath. Fall may likely be mechanical as loss of consciousness was denied * Currently vitals wnl * Cardiac monitoring * Echo ef 55-60% * EKG NSR # Acute lower back pain # Lower extremity weakness * Patient has b/l weakness and is unable to walk * Lumbar x-ray negative, head ct negative * Lumbar spine CT reflext post Op L3- L4 surgery with no acute changes * Physical therapy ordered walked 5 steps * pain control # FEN F: dc fluids E: Monitor electrolytes N: Regular diet #DVT: Lovenox SQ D #Dispo: Admitted to telemetry Dc to SNF in AM pending authorization follow up with pain management as out pt Visit type - Emergency Visit Emergency Visit: Yes ED Registration Date: 04/19/19 Care time: The patient presented to the Emergency Department on the above date and was hospitalized for further evaluation of their emergent condition. - New Patient This patient is new to me today: No - Critical Care Critical Care patient: No - Discharge Referral Referred to [facility] Med P.C.: No ATTENDING PHYSICIAN STATEMENT I saw and evaluated the patient. I reviewed the resident's note and discussed the case with the resident. I agree with the resident's findings and plan as documented. SUBJECTIVE: OBJECTIVE: ASSESSMENT AND PLAN:
[2019-04-23] MEDS: traZODone HCL 100 MG TABLET (FP) PO SCH (21:20)
[2019-04-23] MEDS: SENNOSIDES 8.6MG TABLET (FP) PO SCH (21:20)
[2019-04-23] MEDS: AMITRIPTYLINE HCL 25 MG TABLET PO SCH (21:20)
[2019-04-23] MEDS: LIDOCAINE PATCH REMOVAL MC SCH (21:22)
[2019-04-23] MEDS: POLYETHYLENE GLYCOL 3350 119 GM BTL PO SCH (21:27)
[2019-04-24] MEDS: DOCUSATE SODIUM 100 MG CAPSULE (FP) PO SCH ×3 (06:01→22:15)
[2019-04-24] MEDS: CYCLOBENZAPRINE HCL 5 MG TABLET PO SCH ×3 (06:01→22:15)
[2019-04-24 07:47] LABS: BASO % 0.3 % (0-2.0); HEMATOCRIT 36.6 % (32.4-45.2); HEMOGLOBIN 12.4 GM/dL (10.7-15.3); LYMPH % 23.6 % (8-40); MCH 31.8 pg (25.7-33.7); MEAN CELL VOLUME 93.5 fl (80-96); MONO % 8.8 % (3.8-10.2); NEUT % 66.3 % (42.8-82.8); PLATELET COUNT 250 K/MM3 (134-434); RBC 3.91 M/mm3 (3.60-5.2); RDW 12.8 % (11.6-15.6); WHITE BLOOD COUNT 5.6 K/mm3 (4.0-10.0)
[2019-04-24] MEDS: GABAPENTIN 300 MG CAPSULE PO SCH ×2 (09:01→22:15)
[2019-04-24] MEDS: POLYETHYLENE GLYCOL 3350 119 GM BTL PO SCH ×2 (09:01→22:16)
[2019-04-24] MEDS: LIDOCAINE 5% TOPICAL PATCH TP SCH (09:01)
[2019-04-24] MEDS: ENOXAPARIN NA (PORCINE) 40 MG/0.4 ML DISP.SYRIN SQ SCH (09:01)
[2019-04-24] MEDS: PANTOPRAZOLE 40 MG TABLET PO SCH (09:01)
[2019-04-24] MEDS ORDERED: PT OWN MED DRAWER 7, Y5N ONE (13:11)
--- NOTE | 2019-04-24 13:13 | PN ---
Teaching Attending Note Name of Resident: Jose Callahan ATTENDING PHYSICIAN STATEMENT I saw and evaluated the patient. I reviewed the resident's note and discussed the case with the resident. I agree with the resident's findings and plan as documented. SUBJECTIVE: Feels less pain able to walk a few feet OBJECTIVE: Vital Signs Temperature 98.1 F 04/24/19 10:00 Pulse Rate 61 04/24/19 10:00 Respiratory Rate 18 04/24/19 10:00 Blood Pressure 100/58 L 04/24/19 10:00 O2 Sat by Pulse Oximetry (%) 96 04/24/19 09:00 General: Young male, comfortable, not in distress HEENT; mucous membranes moist, no anemia, no jaundice, PERRLA, no nystagmus Neck: No JVD, supple, no bruit, thyroid palpably normal, normal carotid pulsations. Chest: Nontender, clear to auscultation bilaterally/bilateral wheezing/ bilateral basal rales. CVS: S1-S2 regular no murmur/gallop/rub Abdomen: Nondistended, soft, bowel sounds present. 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 , no gross motor sensory deficit CBC, BMP 04/24/19 06:58 04/23/19 05:35 ECHO: Normal CT Lumbar spine: Post OP changes no acute changes Active Medications Acetaminophen (Tylenol -) 325 mg PO Q6H PRN PRN Reason: PAIN LEVEL 4 - 6 Last Admin: 04/22/19 15:22 Dose: 325 mg Amitriptyline HCl (Elavil -) 50 mg PO HS [facility] Last Admin: 04/22/19 23:06 Dose: 50 mg Cyclobenzaprine HCl (Cyclobenzaprine Hcl) 5 mg PO TID [facility] Last Admin: 04/23/19 05:43 Dose: 5 mg Docusate Sodium (Colace -) 100 mg PO TID [facility] Last Admin: 04/23/19 05:42 Dose: 100 mg Enoxaparin Sodium (Lovenox -) 40 mg SQ DAILY [facility] Last Admin: 04/23/19 09:00 Dose: 40 mg Gabapentin (Neurontin -) 300 mg PO BID [facility] Last Admin: 04/23/19 09:00 Dose: 300 mg Lidocaine (Lidoderm Patch -) 1 patch TP DAILY [facility] Last Admin: 04/23/19 09:00 Dose: 1 patch Miscellaneous (Lidoderm Patch Removal) 1 each MC DAILY@2200 [facility] Last Admin: 04/22/19 23:07 Dose: 1 each Oxycodone HCl (Roxicodone -) 5 mg PO Q6H PRN PRN Reason: PAIN LEVEL 4 - 6 Last Admin: 04/22/19 15:22 Dose: 5 mg Pantoprazole Sodium (Protonix -) 40 mg PO DAILY [facility] Last Admin: 04/23/19 09:00 Dose: 40 mg Senna (Senna -) 1 tab PO [facility] Last Admin: 04/22/19 23:06 Dose: 1 tab Tramadol HCl (Ultram -) 50 mg PO Q6H PRN PRN Reason: PAIN LEVEL 1-5 Last Admin: 04/21/19 19:34 Dose: 50 mg Trazodone HCl (Desyrel -) 100 mg PO [facility] Last Admin: 04/22/19 23:11 Dose: 100 mg ASSESSMENT AND PLAN: 43y/o F with PMH of chronic low back pain s/p L3-4 laminectomies with L3-4 posterior fusion in November 2018, patient has been having poor gait since back surgery presenting to the ED S/P escalator fall. Pt was in [employer] shopping when she fell, hit her head and left side as she was getting on the escalator. Patient has normal EKG QTC 458, normal echocardiogram , normal imaging including CT lumbar spine, evaluated by neuro spine surgery cleared to DC; Plan: PT evaluation, unlikely cardiac syncope, syncope work-up negative, if patient is unable to walk can be discharged home with PT or subacute rehabilitation Impression: Mechanical fall Worsening back pain Patient can be discharged home with PT/subacute rehab Problem List - Problems (1) Fall (on) (from) other stairs and steps, initial encounter Assessment/Plan: Most likely mechanical, no loss of consciousness EKG no arrhythmia normal QTC, no complaint of chest pain/shortness of breath or palpitation, no family history of sudden cardiac , PT evaluation, repeat CT spine shows no fracture, hardware is at place, cleared by neurosurgery, optimize pain control add on Flexeril consider home PT/subacute rehab as per PT evaluation. Code(s): W10.8XXA - FALL (ON) (FROM) OTHER STAIRS AND STEPS, INITIAL ENCOUNTER (2) Back pain Assessment/Plan: Patient is chronic back pain presents with worsening based pain after sustaining mechanical fall, complained of pain despite resuming all home medication we will add Flexeril, patient has follow-up with pain management clinic Dr. Freeman. Code(s): M54.9 - DORSALGIA, UNSPECIFIED Qualifiers: Back pain location: back pain in unspecified location Chronicity: unspecified Back pain laterality: unspecified Qualified Code(s): M54.9 - Dorsalgia, unspecified (3) Depressed Assessment/Plan: Continue all home Code(s): F32.9 - MAJOR DEPRESSIVE DISORDER, SINGLE EPISODE, UNSPECIFIED (4) Pre-syncope Assessment/Plan: Present with questionable presyncope no cardiac history, no family of sudden cardiac , normal EKG, normal echo, no arrhythmia on 24 hours on air sampling and monitoring considering presentation and negative work-up unlikely cardiac etiology. Code(s): R55 - SYNCOPE AND COLLAPSE
--- NOTE | 2019-04-24 18:15 | PN ---
Progress Note (short form) - Note Progress Note: slow progress no acute surgical concern encouraged LSO use - GI/DVT prophylaxis - PT
--- NOTE | 2019-04-24 18:24 | DS ---
Physical Exam: SUBJECTIVE: Patient seen and examined at bed side , pain controlled , Ct lumbar without contrast per neurosurgery with no changes dc in am to SNF pending bed add cyclobenzaprine muscle relaxant OBJECTIVE: Vital Signs Period Temp Pulse Resp BP Sys/West Pulse Ox Last 24 Hr 97.8 F-98.2 F 61-90 16-18 100-115/55-65 96-96 PHYSICAL EXAM GENERAL: AAOx3 in NAD HEAD: NC/AT EYES: PERRL, extraocular movements intact, sclera anicteric, ENT: moist mucous membranes. NECK: full range of motion, supple. LUNGS: Breath sounds equal, clear to auscultation bilaterally, no wheezes, no crackles, no accessory muscle use. HEART: Regular rate and rhythm, S1, S2 without murmur, rub or gallop. ABDOMEN: Soft, nontender, nondistended, normoactive bowel sounds, no guarding, no rebound, no hepatosplenomegaly, no masses. EXTREMITIES: 2+ pulses, warm, well-perfused, no edema. NEUROLOGICAL: no focal deficit , move all ext . Normal speech, gait not observed. strengty 5/5 upper and lower ext PSYCH: Normal mood, normal affect. SKIN: Warm, dry, normal turgor, LABS Laboratory Results - last 24 hr 04/24/19 06:58 WBC 5.6 RBC 3.91 Hgb 12.4 Hct 36.6 MCV 93.5 MCH 31.8 MCHC 34.0 RDW 12.8 Plt Count 250 MPV 9.0 Absolute Neuts (auto) 3.7 Neutrophils % 66.3 Lymphocytes % 23.6 Monocytes % 8.8 Eosinophils % 1.0 Basophils % 0.3 Nucleated RBC % 0 CBC, BMP 04/24/19 06:58 04/23/19 05:35 HOSPITAL COURSE: Date of Admission:04/19/19 Date of Discharge: 04/24/19 43 F PMH lumbar disc herniation s/p laminectomy and fusion who presents today with possible syncopal fall. # Fall- mechanical vs syncopal in nature vs orthostatics * Patient was able to recall events of fall, however describes symptoms related to a possible syncope event- confusion, palpitations, shortness of breath. Fall may likely be mechanical as loss of consciousness was denied * Currently vitals wnl * Cardiac monitoring * Echo ef 55-60% * EKG NSR # Acute lower back pain # Lower extremity weakness * Patient has b/l weakness and is unable to walk * Lumbar x-ray negative, head ct negative * Lumbar spine CT reflext post Op L3- L4 surgery with no acute changes * Physical therapy ordered walked 5 steps * pain control with percocet , lidocain patch ,cyclopenzaprin , ultram and gabapentin #Dispo: Dc to SNF in AM pending bed follow up with pain management as out pt Minutes to complete discharge: 50 Discharge Summary Problems reviewed: Yes Reason For Visit: LBP/FALL Current Active Problems Back pain (Chronic) Depressed (Chronic) Condition: Improved - Instructions Diet, Activity, Other Instructions: you presented to the hospital after you fell down , images came back negative for any fracture , you will be send to rehab facility to strengthen your muscle please take pain medication as prescribed Cyclobenzaprine 10 mg three times daily added for muscle relaxant please take as prescribed, avoid any driving while you are on this medicine as it can cause drowziness Ultram pain killer added as well lidocaine patch oxycodone please follow up with Dr Freeman for pain management his information is in discharged packet please resume other home medication as before admission if you develop fever , chill, nausea sever back pain or chest pain , numbness tingling call 911 or return to emergency room. Referrals: Pawel Sterling MD, FA[facility] [Staff Physician] - 3 Weeks Lorenzo Gomez MD [Primary Care Provider] - 1 Week Jeff Freeman MD [Staff Physician] - 1 Week Disposition: LONG-TERM FACILITY - Home Medications Comprehensive Discharge Medication List: Ambulatory Orders traZODone HCL [Trazodone HCl] 100 mg PO PRN PRN 07/21/18 Gabapentin [Neurontin] 300 mg PO BID 11/04/18 Oxycodone HCl/Acetaminophen [Oxycodone-Acetaminophen 5-325] 1 each PO PRN PRN Amitriptyline HCl [Elavil -] 50 mg PO HS 04/19/19 Acetaminophen [Tylenol .Regular Strength -] 325 mg PO Q6H PRN tablet 04/24/19 Cyclobenzaprine HCl 5 mg PO TID tablet 04/24/19 Docusate Sodium [Colace -] 100 mg PO TID capsule 04/24/19 Lidocaine 5% Patch [Lidoderm -] 1 patch TP DAILY patch 04/24/19 Pantoprazole Sodium [Protonix -] 40 mg PO DAILY tablet.ec 04/24/19 Polyethylene Glycol 3350 [Miralax 119 gm Btl -] 17 gm PO BID bottle 04/24/19 Sennosides [Senna -] 1 tab PO HS tablet 04/24/19 traMADol HCL [Ultram -] 50 mg PO Q6H PRN tablet MDD 4 04/24/19 This patient is new to me today: No Emergency Visit: Yes ED Registration Date: 04/19/19 Care time: The patient presented to the Emergency Department on the above date and was hospitalized for further evaluation of their emergent condition. Critical Care patient: No - Discharge Referral Referred to [facility] Med P.C.: No ATTENDING PHYSICIAN STATEMENT I saw and evaluated the patient. I reviewed the resident's note and discussed the case with the resident. I agree with the resident's findings and plan as documented. SUBJECTIVE: OBJECTIVE: ASSESSMENT AND PLAN:
[2019-04-24] MEDS: SENNOSIDES 8.6MG TABLET (FP) PO SCH (22:15)
[2019-04-24] MEDS: traZODone HCL 100 MG TABLET (FP) PO SCH (22:16)
[2019-04-24] MEDS: LIDOCAINE PATCH REMOVAL MC SCH (22:16)
[2019-04-24] MEDS: AMITRIPTYLINE HCL 25 MG TABLET PO SCH (22:16)
[2019-04-25] MEDS: DOCUSATE SODIUM 100 MG CAPSULE (FP) PO SCH ×2 (06:27→13:45)
[2019-04-25] MEDS: CYCLOBENZAPRINE HCL 5 MG TABLET PO SCH ×2 (06:28→13:45)
--- NOTE | 2019-04-25 08:27 | PN ---
Progress Note, Physician - Current Medication List Current Medications: Active Medications Acetaminophen (Tylenol -) 325 mg PO Q6H PRN PRN Reason: PAIN LEVEL 4 - 6 Last Admin: 04/22/19 15:22 Dose: 325 mg Amitriptyline HCl (Elavil -) 50 mg PO [facility] Last Admin: 04/24/19 22:16 Dose: 50 mg Cyclobenzaprine HCl (Cyclobenzaprine Hcl) 5 mg PO TID [facility] Last Admin: 04/25/19 06:28 Dose: 5 mg Docusate Sodium (Colace -) 100 mg PO TID [facility] Last Admin: 04/25/19 06:27 Dose: 100 mg Enoxaparin Sodium (Lovenox -) 40 mg SQ DAILY [facility] Last Admin: 04/24/19 09:01 Dose: 40 mg Gabapentin (Neurontin -) 300 mg PO BID [facility] Last Admin: 04/24/19 22:15 Dose: 300 mg Lidocaine (Lidoderm Patch -) 1 patch TP DAILY [facility] Last Admin: 04/24/19 09:01 Dose: 1 patch Miscellaneous (Lidoderm Patch Removal) 1 each MC DAILY@2200 [facility] Last Admin: 04/24/19 22:16 Dose: Not Given Oxycodone HCl (Roxicodone -) 5 mg PO Q6H PRN PRN Reason: PAIN LEVEL 4 - 6 Last Admin: 04/22/19 15:22 Dose: 5 mg Pantoprazole Sodium (Protonix -) 40 mg PO DAILY [facility] Last Admin: 04/24/19 09:01 Dose: 40 mg Polyethylene Glycol (Miralax (For Daily Use) -) 17 gm PO BID [facility] Last Admin: 04/24/19 22:16 Dose: 17 gm Senna (Senna -) 1 tab PO [facility] Last Admin: 04/24/19 22:15 Dose: 1 tab Tramadol HCl (Ultram -) 50 mg PO Q6H PRN PRN Reason: PAIN LEVEL 1-5 Last Admin: 04/21/19 19:34 Dose: 50 mg Trazodone HCl (Desyrel -) 100 mg PO [facility] Last Admin: 04/24/19 22:16 Dose: 100 mg - Objective Vital Signs: Vital Signs Temperature 97.5 F L 04/25/19 05:58 Pulse Rate 57 L 04/25/19 05:58 Respiratory Rate 20 04/25/19 05:58 Blood Pressure 93/53 L 04/25/19 05:58 O2 Sat by Pulse Oximetry (%) 96 04/24/19 21:00 General: Young male, comfortable, not in distress HEENT; mucous membranes moist, no anemia, no jaundice, PERRLA, no nystagmus Neck: No JVD, supple, no bruit, thyroid palpably normal, normal carotid pulsations. Chest: Nontender, clear to auscultation bilaterally/bilateral wheezing/ bilateral basal rales. CVS: S1-S2 regular no murmur/gallop/rub Abdomen: Nondistended, soft, bowel sounds present. 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 Code(s): W10.8XXA - FALL (ON) (FROM) OTHER STAIRS AND STEPS, INITIAL ENCOUNTER (2) Back pain Assessment/Plan: Patient is chronic back pain presents with worsening based pain after sustaining mechanical fall, complained of pain despite resuming all home medication we will add Flexeril, patient has follow-up with pain management clinic Dr. Freeman. Code(s): M54.9 - DORSALGIA, UNSPECIFIED Qualifiers: Back pain location: back pain in unspecified location Chronicity: unspecified Back pain laterality: unspecified Qualified Code(s): M54.9 - Dorsalgia, unspecified (3) Depressed Assessment/Plan: Continue all home Code(s): F32.9 - MAJOR DEPRESSIVE DISORDER, SINGLE EPISODE, UNSPECIFIED (4) Pre-syncope Code(s): R55 - SYNCOPE AND COLLAPSE
[2019-04-25] MEDS: PANTOPRAZOLE 40 MG TABLET PO SCH (10:46)
[2019-04-25] MEDS: LIDOCAINE 5% TOPICAL PATCH TP SCH (10:46)
[2019-04-25] MEDS: ENOXAPARIN NA (PORCINE) 40 MG/0.4 ML DISP.SYRIN SQ SCH (10:46)
[2019-04-25] MEDS: GABAPENTIN 300 MG CAPSULE PO SCH (10:46)
[2019-04-25] MEDS: POLYETHYLENE GLYCOL 3350 119 GM BTL PO SCH (10:46)
[2019-04-25] MEDS: oxyCODONE HCL 5 MG TABLET PO PRN (10:48)
--- NOTE | 2019-04-25 12:42 | PN ---
Progress Note (short form) - Note Progress Note: Patient remains stable. No new complaints
[2019-04-25 14:14] VITALS: BP 106/60; PULSE 93; TEMP 98.4
== END 2019-04-25 15:53 | DRG 347 ==
LOC: JER 14:45 → UNDOADMIN 21:03 → JERBED 21:03 → J4S 04-20 15:39
PROVIDERS: ADMIT Internal Medicine; ATTEND Internal Medicine
DX: M54.89 Other dorsalgia (principal); W10.8XXA Fall (on) (from) other stairs and steps, initial encounter; R51 Headache; Y92.59 Other trade areas as the place of occurrence of the external cause; E87.6 Hypokalemia; F41.8 Other specified anxiety disorders; R55 Syncope and collapse
CPT/HCPCS: 36415; 70450-TC; 72100-TC-FY; 72125-TC; 72131-TC; 80048; 80053; 82550; 84443; 84484; 84703; 85025; 85610; 85730; 93005; 93010; 93306-TC; 97116-GP; 97162-GP; 99285-25; J0131; J7030

== ENCOUNTER 2019-05-07 07:44 | Day surgery (SDC) | payer OTHER ==
[2019-05-06 16:06] VITALS: BMI 29.0
[2019-05-07] MEDS ORDERED: LIDOCAINE HCL 1%, 10 MG/ML (20ML VIAL) ONE (11:48)
[2019-05-07] MEDS ORDERED: MIDAZOLAM HCL 2 MG/2 ML SINGLE DOSE VIAL ONE (11:50)
[2019-05-07] MEDS ORDERED: DEXAMETHASONE SOD PHOSPHATE 4 MG/1 ML VIAL ONE (11:57)
[2019-05-07] MEDS ORDERED: IOHEXOL 180 MG/1 ML ML IJ ONE (12:22)
[2019-05-07] MEDS ORDERED: BUPIVACAINE HCL/PF 0.5% (5 MG/ML) 30 ML VIAL IJ ONE (12:22)
[2019-05-07] MEDS ORDERED: DEXAMETHASONE SOD PHOSPHATE 4 MG/1 ML VIAL NR ONE (12:23)
[2019-05-07] MEDS ORDERED: LIDOCAINE HCL 1%, 10 MG/ML (20ML VIAL) NR ONE (12:23)
[2019-05-07 18:57] VITALS: TEMP 98.3
[2019-05-07 19:00] VITALS: BP 127/73; PULSE 98
--- NOTE | 2019-05-10 16:33 | PROC ---
Procedure Note Procedure: Date: 05/07/2019 : 1975 Age: 43 Year(s) Sex: Female Name of the patient: Linda Read Preoperative Diagnosis: Lower back pain, Lumbar facet arthropathy Left Postoperative Diagnosis: Same Procedure Performed: Lumbar facet Medial Branch diagnostic Block at L3-S1 levels Left Anesthesia: Local / MAC Procedure: I discussed with the patient in detail about the risks, benefits and alternatives to treatment not only limited to infection, headache, numbness, w eakness and injury to nerves, spinal cord, blood vessels and muscles. The patient understood, agreed and signed the written consent. The patient was placed in the prone position with the head, abdomen and legs supported with the pillows. The patients lower back was prepped and draped in a sterile fashion. Under C-arm and Scottie dog view eye was identified the L2-3, L3-4 and L4-5 levels on Left side. At the level of L3-4 (L3), 2 ml of 2% Lidocaine was infiltrated into the skin and subcutaneous tissue. A guage spinal needle was used to approach the eye of the Scottie dog in the oblique view until the tip of the needle contacted the bone with the use of intermittent fluoroscopy. Needle placement was confirmed . Aspiration was done which was negative for blood. 0.5 ml of contrast was injected to see the spread of the dye. A solution of 0.5 ml of preservative free 0.5% Marcaine was injected at this level. The needle was withdrawn. Similar procedure was repeated at left L4-5 (L4) and L5-S1 (L5) level. The patient tolerated the procedure well. Bleeding was checked. There were no immediate complications. The patient was observed and asked about pain level. The patient mentioned that there was improvement was more than 80%. The patient was discharged as per ASC criteria.The patient was told to apply ice at the injection sites. If there is any problem, call my office or report to the ER ^ Jeff Freeman M.D.
== END 2019-05-07 13:45 | disposition home or self-care (01) ==
LOC: JASU-SURG 07:44
PROVIDERS: ATTEND Physical Medicine & Rehabilitation
PROC: BR16YZZ Fluoroscopy of Lumbar Facet Joint(s) using Other Contrast (ICD-10-PCS; 2019-05-07)
PROC: 3E0T3BZ Introduction of Anesthetic Agent into Peripheral Nerves and Plexi, Percutaneous Approach (ICD-10-PCS; principal; 2019-05-07 10:00)
DX: M47.816 Spondylosis without myelopathy or radiculopathy, lumbar region (principal); M47.817 Spondylosis without myelopathy or radiculopathy, lumbosacral region; M54.5 Low back pain
CPT/HCPCS: 76000-TC-FY; 81025

== ENCOUNTER 2020-07-21 04:23 | Day surgery (SDC) | payer OTHER ==
[2020-07-20 14:30] VITALS: BMI 30.7
[2020-07-21 12:29] VITALS: TEMP 97.8
[2020-07-21] MEDS ORDERED: MIDAZOLAM HCL 2 MG/2 ML SINGLE DOSE VIAL ONE ×2 (15:56)
[2020-07-21] MEDS ORDERED: DEXAMETHASONE SOD PHOSPHATE 4 MG/1 ML VIAL ONE (16:02)
[2020-07-21] MEDS ORDERED: ceFAZolin SODIUM 1 GM VIAL ONE (16:02)
[2020-07-21] MEDS ORDERED: ceFAZolin SODIUM 1 GM VIAL IVPB ONE (16:02)
[2020-07-21] MEDS ORDERED: LIDOCAINE HCL 1%, 10 MG/ML (20ML VIAL) ONE ×2 (16:13→16:55)
[2020-07-21] MEDS ORDERED: LIDOCAINE 1% P/F 10 MG/ML VIAL PNB ONE (16:15)
[2020-07-21] MEDS ORDERED: BENZOIN/ALOE VERA/STORAX/TOLU 58 ML BOTTLE ONE (17:04)
[2020-07-21 18:14] VITALS: BP 132/88; PULSE 67
== END 2020-07-21 19:00 | disposition home or self-care (01) ==
LOC: JASU-SURG 04:23
PROVIDERS: ATTEND Physical Medicine & Rehabilitation
PROC: 01HY3MZ Insertion of Neurostimulator Lead into Peripheral Nerve, Percutaneous Approach (ICD-10-PCS; principal; 2020-07-21 14:00)
DX: M54.16 Radiculopathy, lumbar region (principal); M96.1 Postlaminectomy syndrome, not elsewhere classified; M54.5 Low back pain
CPT/HCPCS: 63650; C1897; 81025

== ENCOUNTER 2022-08-16 04:04 | Emergency (ER) | payer OTHER ==
[2022-08-16 04:18] VITALS: BP 140/84; PULSE 70; RESP 18; TEMP 98.6; BMI 30.7
[2022-08-16] MEDS ORDERED: SODIUM CHLORIDE 0.9% 500 ML INFUS.BAG IV ONE (04:48)
[2022-08-16] MEDS ORDERED: ACETAMINOPHEN 1000 MG/100 ML BAG IVPB ONE (04:48)
[2022-08-16] MEDS ORDERED: METOCLOPRAMIDE HCL INJECTION 10 MG/2 ML VIAL IVPB ONE (04:48)
[2022-08-16] MEDS ORDERED: ACETAMINOPHEN INJECTION 100 ML IVPB ONE (04:51)
[2022-08-16] MEDS ORDERED: METOCLOPRAMIDE HCL INJECTION 10 MG/2 ML VIAL ONE (04:51)
[2022-08-16 06:00] LABS: BASO % 0.4 % (0-2.0); EOS % 0.3 % (0-4.5); HEMATOCRIT 40.3 % (32.4-45.2); HEMOGLOBIN 13.2 GM/dL (10.7-15.3); MCH 30.7 pg (25.7-33.7); MCHC 32.7 g/dl (32.0-36.0); MEAN CELL VOLUME 93.8 fl (80-96); MEAN PLT VOLUME 9.4 fl (7.5-11.1); MONO % 6.8 % (3.8-10.2); NEUT % 77.5 % (42.8-82.8); PLATELET COUNT 348 10^3/uL (134-434); RDW 13.8 % (11.6-15.6); WHITE BLOOD COUNT 7.1 K/mm3 (4.0-10.0)
[2022-08-16 06:17] LABS: POTASSIUM 4.2 mmol/L (3.5-5.1)
[2022-08-16 06:20] LABS: ALBUMIN 3.8 g/dl (3.4-5.0); BLOOD UREA NITROGEN 12.4 mg/dL (7-18); CALCIUM 9.8 mg/dL (8.5-10.1)
[2022-08-16 06:25] LABS: BILIRUBIN,TOTAL 0.3 mg/dL (0.2-1); TOT PROT 7.8 g/dl (6.4-8.2)
== END 2022-08-16 07:18 | disposition home or self-care (01) ==
LOC: JER 04:04
PROC: 3E033NZ Introduction of Analgesics, Hypnotics, Sedatives into Peripheral Vein, Percutaneous Approach (ICD-10-PCS; principal; 2022-08-16)
PROC: 3E033GC Introduction of Other Therapeutic Substance into Peripheral Vein, Percutaneous Approach (ICD-10-PCS; 2022-08-16)
PROC: 3E033GC Introduction of Other Therapeutic Substance into Peripheral Vein, Percutaneous Approach (ICD-10-PCS; 2022-08-16)
DX: R51.9 Headache, unspecified (principal); R11.2 Nausea with vomiting, unspecified
CPT/HCPCS: 36415; 70450-TC; 80053; 83690; 84703; 85025; 99284-25